=== PATIENT | male | born 1930 | race Caucasian/White ===

== ENCOUNTER 2016-12-11 12:59 | Emergency (ER) | payer OTHER ==
--- NOTE | 2016-12-11 13:04 | EDPHY ---
H & P Time Seen by Provider: 12/11/16 13:03 HPI/ROS: CHIEF COMPLAINT: Possible syncopal episode. ?fell asleep HISTORY OF PRESENT ILLNESS: The patient is an 86-year-old male with a history of prior CVAs and seizure disorder presenting via EMS for a possible syncopal episode earlier today. He reports that he was eating breakfast and next remembers waking up in the ambulance. He did not have chest pain, dizziness, headache, shortness of breath, weakness, or other preceding symptoms. Per his he was more tired than usual this morning and has not been sleeping well. He took a Mirtazapine prior to falling asleep last night which he does not usually do. She reports he had saliva dripping down his face while eating. These symptoms are not similar to his seizure episodes. EMS reports that he was breathing 2 to 3 times per minute when they arrived, which increased when they woke him up. No recent sickness, fever, chills, chest pain, shortness of breath , palpitations, vomiting, diarrhea, urinary complaints, headache, lightheadedness. He is anticoagulated on Plavix. On further history, patient took clonazepam prior to bed, didn't fall asleep so took a mirtazapine in the middle of the night. REVIEW OF SYSTEMS: Aside from elements discussed in the HPI, a comprehensive 10-point review of systems was reviewed and is negative. PAST MEDICAL HISTORY: CVA, TIA, seizure disorder, hypertension, peripheral neuropathy, BPH, sleep apnea. SOCIAL HISTORY: Lives at [facility]. VITAL SIGNS: Reviewed by me GENERAL: Pleasant. Well-developed, well-nourished, resting comfortably in no respiratory distress. HEENT: Healing wound over occiput from prior fall 2-3 weeks ago. Eyes: No icterus, no injection. PERRL, EOMI. Mouth: dry mucous membranes. No erythema or lesions. Neck: supple with no adenopathy. No tenderness to palpation. LUNGS: Clear to auscultation bilaterally, no wheezes, rhonchi or rales. CARDIAC: Regular rate and rhythm, no rubs, murmurs or gallops. ABDOMEN: Soft, nontender, nondistended, bowel sounds normal. BACK: No CVA tenderness. EXTREMITIES: Left leg: Healing area of cellulitis on lateral tib-fib with dressing in place. No edema. Range of motion is normal throughout. NEURO: Alert and oriented x 3, conversant, GRANT x4, good strength throughout, normal sensation, CN 2-12 intact. SKIN: Warm and dry, no rash. PSYCHIATRIC: Normal mentation, no agitation. Portions of this note were transcribed by a medical or surgical instrument maker. I personally performed a history, physical exam, medical decision making, and confirmed accuracy of information the transcribed note. Source: Patient Exam Limitations: No limitations - Personal History Tetanus Vaccine Date: < 10 years - Medical/Surgical History Hx Asthma: No Hx Chronic Respiratory Disease: No Hx Diabetes: No Hx Cardiac Disease: Yes Hx Renal Disease: No Hx Cirrhosis: No Hx Alcoholism: No Hx HIV/AIDS: No Hx Splenectomy or Spleen Trauma: No Other PMH: stroke 2013. epilepsy. neuropathy, ALFREDO, HTN,BPH, - Social History Smoking Status: Never smoked Constitutional: Initial Vital Signs Temperature (C) 36.4 C 12/11/16 13:09 Heart Rate 71 12/11/16 13:09 Respiratory Rate 14 12/11/16 13:09 Blood Pressure 108/54 L 12/11/16 13:09 O2 Sat (%) 95 12/11/16 13:09 O2 Delivery Mode Room Air Allergies/Adverse Reactions: phenytoin sodium [From Dilantin] Allergy (Verified 07/11/16 09:43) phenytoin sodium extended [From Dilantin] Allergy (Verified 07/11/16 09:43) Home Medications: Medication Instructions Recorded Acetamn/Diphenhydramine 500/25 1.5 tab PO HS 05/24/15 [Tylenol PM (*)] Cholecalciferol Vit D3 [Vitamin D3 1,000 units PO DAILY 05/24/15 (*)] Clopidogrel Bisulfate [Plavix (*)] 75 mg PO DAILY 05/24/15 Finasteride [Proscar 5 MG (*)] 5 mg PO DAILY18 05/24/15 Gabapentin [Neurontin 300 MG (*)] 300 mg PO 07,10,12,18 05/24/15 Gabapentin [Neurontin 300 MG (*)] 600 mg PO HS 05/24/15 Herbals/Supplements -Info Only 1 each PO HS 05/24/15 Lisinopril [Zestril 10 mg (*)] 5 mg PO DAILY 05/24/15 Melatonin [Melatonin 3 MG (*)] 3 mg PO HS PRN 05/24/15 Tamsulosin HCl [Flomax 0.4 MG (*)] 0.8 mg PO HS 05/24/15 carBAMazepine [Tegretol] 200 mg PO QID 05/24/15 LORazepam [Ativan (*)] 2 mg PO BID 07/11/16 levOFLOXACIN [levAQUIN (*)] 500 mg PO DAILY #7 tab 07/12/16 Medical Decision Making - Diagnostics EKG Interpretation: 12-LEAD EKG: Please see the full report in [facility]. My interpretation: Normal sinus rhythm with 1st degree AV block. Imaging: Study: CT of the head. Indication: Possible syncope. Results: No acute process. The study was read by the radiologist, Dr. Siddiqui. I viewed the images myself on the PACS system. Chest x-ray was obtained. I viewed the images myself on the PACS system. My interpretation of the images is: no acute process. The radiologist interpretation is pending at this time. I discussed the x-ray findings with the patient. ED Course/Re-evaluation: An IV was established and labs ordered. Chest x-ray, EKG, head CT w/o contrast ordered. 1L IV saline administered for hydration. 1404: CT reported to me negative for acute process by Dr. Siddiqui, radiology. Labs largely unremarkable. Troponin negative. 1427: Reassessed patient. Informed him of laboratory results. He will provide a urine sample. UA is negative. I discussed this with the patient. Patient and feel symptoms most likely represented overmedication. He is ready to go home. No evidence of intracranial issue, VS stable, labs normal. No evidence of occult infection. I answered all of his questions. He was given return precautions and warnings prior to discharge. Differential Diagnosis: Diff dx of patient presenting complaints included but not limited to vasovagal syncope, arrhythmia, dehydration, blood loss, cardiac event, seizure, over- medicated. - Data Points Laboratory Results: Laboratory Results 12/11/16 13:29 12/11/16 13:29 Medications Given: Discontinued Medications Sodium Chloride (Ns) 1,000 mls @ 0 mls/hr IV ONCE ONE PRN Reason: Wide Open Stop: 12/11/16 13:28 Last Admin: 12/11/16 13:39 Dose: 1,000 mls Departure - Departure Disposition: Home, Routine, Self-Care Clinical Impression: Near syncope, Adverse effect of drug Condition: Good Instructions: Near Syncope (ED) Additional Instructions: Drink plenty of fluids and be sure to get rest. Use care when taking your sleeping medications. Do not take more than one at a time. Follow up with your primary care provider this week if you have continued symptoms. Return to the emergency department if you experience any serious worsening of condition. Referrals: NONE *PRIMARY CARE P,. [Unknown] - As per Instructions Report Scribed for: Whit Wheat Report Scribed by: Lanre Bermeo Date of Report: 12/11/16 Time of Report: 13:04
--- NOTE | 2016-12-11 13:09 | CPEKG ---
Heart Rate: 66 RR Interval: 909 QRSD Interval: 104 QT Interval: 420 QTC Interval: 441 QRS [place]: -45 T Wave [place]: 38 EKG Severity - ABNORMAL ECG - EKG Impression: ACCELERATED JUNCTIONAL ESCAPE RHYTHM EKG Impression: LEFT ANTERIOR FASCICULAR BLOCK Electronically Signed By: Stewart Wyatt 11-Dec-2016 15:04:56
[2016-12-11 13:13] VITALS: RESP 14
[2016-12-11] MEDS ORDERED: NS 1,000 ML IV ONE (13:27)
[2016-12-11 13:49] LABS: ADD DIFF? YES; ADD MORPH? NO; ADD SCAN? NO; ATYPICAL LYMPHOCYTE FLAG 0 (0-99); FRAGMENT RBC FLAG 0 (0-99); HEMATOCRIT 40.6 % (40.0-51.0); HEMOGLOBIN 13.9 g/dL (13.7-17.5); LEFT SHIFT FLG 30 (0-99); LIPEMIA HEMOLYSIS FLAG 90 (0-99); MEAN CELL HEMOGLOBIN 30.5 pg (27.9-34.1); MEAN CELL HEMOGLOBIN CONCENTR. 34.2 g/dL (32.4-36.7); MEAN CELL VOLUME 89.2 fL (81.5-99.8); MEAN PLATELET VOLUME 7.8 fL (8.7-11.7); PLATELET CLUMPS FLAG 0 (0-99); PLATELET COUNT 362 10^3/uL (150-400); RED BLOOD CELL COUNT 4.55 10^6/uL (4.40-6.38); RED CELL DISTRIBUTION WIDTH 14.3 % (11.5-15.2)
[2016-12-11 14:01] LABS: ANION GAP 6 mEq/L (8-16); CALCIUM 7.9 mg/dL (8.5-10.4); CARBON DIOXIDE 25 mEq/l (22-31); CHLORIDE 103 mEq/L (97-110); CREATININE 0.9 mg/dL (0.7-1.3); GLOMERULAR FILTRATION RATE > 60; GLUCOSE 93 mg/dL (70-100); POTASSIUM 4.3 mEq/L (3.5-5.2); SODIUM 134 mEq/L (134-144); TEGRETOL (CARBAMAZEPINE) 9.6 ug/mL (4.0-12.0)
[2016-12-11 14:09] LABS: TROPONIN I < 0.012 ng/mL (0-0.034)
[2016-12-11 14:38] LABS: PLATELET ESTIMATE ADEQUATE (ADEQ)
[2016-12-11 14:59] VITALS: O2SAT 96
[2016-12-11 15:16] LABS: COLOR YELLOW; LEUKOCYTE ESTERASE,URINE NEGATIVE (NEGATIVE); NITRITE,URINE NEGATIVE (NEGATIVE)
--- NOTE | 2016-12-11 15:42 | DX ---
Chest, PA and Lateral December 11, 2016 History: Chest pain. Comparison: June 2016. Findings: Heart size is within normal limits. The aorta is tortuous with calcifications, indicating a therosclerotic disease. Emphysematous configuration to the chest. The lungs are clear of acute consol idation. No evidence for pleural effusion or pneumothorax. Degenerative change is seen in the thoraci c spine. Degenerative change is seen of both shoulders. Impression: No evidence for acute cardiopulmonary abnormality. Chronic findings, as above.
--- NOTE | 2016-12-11 15:44 | CT ---
CT Head Without Contrast History: Head injury two weeks ago. On Plavix. Syncopal episode. Technique: Standard noncontrast head CT protocol utilizing axial images acquired through the calvari um. Images were reconstructed down to 1.25-mm slice thickness as well. Radiation dose technique was u tilized. Findings: Moderate periventricular and deep hemispheric white matter change is seen bilaterally. Ther e is generalized prominence of the ventricles, sulci, and cisterns. No evidence for intracranial hemo rrhage, infarct, or mass. No evidence for an extraaxial fluid collection. No evidence for a skull fra cture. No evidence for an air-fluid level in the paranasal sinuses. Vascular calcifications are seen intracranially, indicating atherosclerotic disease. Impression: No evidence for acute intracranial abnormality. Moderate periventricular and deep hemisph oriana white matter change that can be seen with small vessel ischemic disease. Generalized cerebral at rophy. Results called to Dr. Whit Wheat.
[2016-12-11 16:10] VITALS: BP 133/78; PULSE 73; TEMP 97.5
== END 2016-12-11 16:09 | disposition home or self-care (01) ==
LOC: EDUNIT#
DX: R55 Syncope and collapse (principal); T43.025A Adverse effect of tetracyclic antidepressants, initial encounter; I10 Essential (primary) hypertension; Z86.73 Personal history of transient ischemic attack (TIA), and cerebral infarction without residual deficits

== ENCOUNTER 2017-04-08 14:49 | Inpatient (IN) | payer OTHER ==
[2017-04-08] MEDS: NS 1,000 ML IV ONE ×4 (15:02→15:33)
--- NOTE | 2017-04-08 15:05 | EDPHY ---
H & P Time Seen by Provider: 04/08/17 14:54 HPI/ROS: HPI Altered mental status. 86-year-old male by ambulance from home. Patient apparently was of normal mental status and behaving appropriately this morning according to his he lives with. Then became progressively more confused and agitated through the late morning into this afternoon. Paramedics report that the house smelled strongly of urine. Paramedics noted he was somewhat combative. states that he has been grabbing at things grabbing at people and talking nonsensically. History of mechanical fall 4 days ago. Unknown if he is on anticoagulants. He self caths. noted nurse assessor some blood in his urine this morning along with strong smell of urine. Patient initially given 2.5 mg of IV Valium secondary to agitation by EMS. ROS: Constitutional: Fever, no chills. No weakness. Eyes: No discharge. No changes in vision. ENT: No sore throat. No nasal congestion or rhinorrhea. Respiratory: No cough. No shortness of breath. Cardiac: No chest pain, no palpitations. Gastrointestinal: No abdominal pain, no vomiting, no diarrhea. Genitourinary: No hematuria. No dysuria or increased frequency with urination. Self cath. Musculoskeletal: No back pain. No neck pain. No myalgias or arthralgias. Skin: No rashes. Neurological: No headache. No focal weakness or altered sensation. Past medical history: Neuropathy in the lower extremities with history of frequent falls secondary to this, osteoarthritis, benign prostatic hypertrophy, self catheterization. He is on clopidogrel. Social history: Nonsmoker. No alcohol according to . is present with him. Physical Exam: General Appearance: Alert, agitated. Grabbing at people and things. Mumbles, eyes open This patient appears generally well-hydrated and well-nourished. Eyes: Pupils equal and round no pallor or injection. No lid edema, erythema or injection. Head: Normocephalic atraumatic. ENT, Mouth: Mucous membranes are moist. The pharyngeal tissues are unremarkable. No edema or swelling. No asymmetry suggestive of abscess. No erythema or exudates. No tongue lacerations or abrasions. Respiratory: There are no retractions, lungs are clear to auscultation with good air movement bilaterally. Cardiovascular: Regular rate and rhythm. No murmur. Gastrointestinal: Abdomen is soft and nontender, no masses, bowel sounds normal. No focal tenderness at McBurney's point. No Rouse sign. Neurological: Motor sensory function is grossly intact. Cranial nerves are normal. Gait is normal. Skin: Warm and dry, no rashes. Musculoskeletal: Neck is supple and nontender. No midline cervical spine tenderness on palpation. Extremities are symmetrical. All joints range without pain or impingement. Psychiatric: No agitation. No depression. Database: EKG: EKG time is 3:13 p.m.; EKG shows a narrow complex sinus tachycardia with a ventricular rate of 105. The MD, QRS, QT intervals are within normal limits. There are no ST-T wave changes indicative of ischemic or injury pattern. No evidence of right heart strain. Interpreted by me. Imaging: CT head without contrast: Negative for acute pathology. Results were discussed with staff radiologist. Chest x-ray PA and lateral; the cardiac mediastinal silhouette is unremarkable. No evidence of infiltrate or pneumothorax. Diffuse interstitial thickening in both lungs. No other acute cardiopulmonary disease process noted. Interpreted by me. Procedures: Emergency department course: IV placed. He was placed on a pension consultant. Sellers catheter placed. Urine obtained. Blood cultures and sepsis protocol initiated. Vital signs reviewed. Patient febrile and tachycardic. EKG performed. Patient to be sent for CT imaging shortly. Patient given an additional 7.5 mg of IV Valium. 3:30 p.m., patient re-evaluated. Resting comfortably at this time. Calm and now responding to questions appropriately and in full sentences. Initial venous lactate 5.4, severe sepsis protocol initiated. Patient sent for CT imaging of the head. 4:00 p.m., urinalysis indicates infection, patient started on IV Rocephin in the emergency department for urosepsis. Repeat lactate after 30 mL/kilogram fluid bolus is 2.8. Blood pressure 133/53, heart rate 98. Discussed case with on-call hospitalist Dr. Bradford. He has accepted this patient for admission. Patient admitted to hospitalist service in stable and improved condition. Differential Diagnosis: The differential diagnosis on this patient includes but is not limited to urosepsis, traumatic brain injury, seizure. This represents a partial list of diagnoses considered. These considerations are based on history, physical exam , past history, reassessment and diagnostic testing. Smoking Status: Never smoked Constitutional: Initial Vital Signs Temperature (C) 39.3 C H 04/08/17 14:59 Heart Rate 115 H 04/08/17 14:59 Respiratory Rate 18 04/08/17 14:59 Blood Pressure 146/84 H 04/08/17 14:59 O2 Sat (%) 90 L 04/08/17 14:59 O2 Delivery Mode Nasal Cannula O2 (L/minute) 2 Allergies/Adverse Reactions: phenytoin sodium [From Dilantin] Allergy (Verified 07/11/16 09:43) phenytoin sodium extended [From Dilantin] Allergy (Verified 07/11/16 09:43) Home Medications: Medication Instructions Recorded Acetamn/Diphenhydramine 500/25 1.5 tab PO HS 05/24/15 [Tylenol PM (*)] Cholecalciferol Vit D3 [Vitamin D3 1,000 units PO DAILY 05/24/15 (*)] Clopidogrel Bisulfate [Plavix (*)] 75 mg PO DAILY 05/24/15 Finasteride [Proscar 5 MG (*)] 5 mg PO DAILY18 05/24/15 Gabapentin [Neurontin 300 MG (*)] 300 mg PO 07,,,18 05/24/15 Gabapentin [Neurontin 300 MG (*)] 600 mg PO HS 05/24/15 Herbals/Supplements -Info Only 1 each PO HS 05/24/15 Lisinopril [Zestril 10 mg (*)] 5 mg PO DAILY 05/24/15 Melatonin [Melatonin 3 MG (*)] 3 mg PO HS PRN 05/24/15 Tamsulosin HCl [Flomax 0.4 MG (*)] 0.8 mg PO HS 05/24/15 carBAMazepine [Tegretol] 200 mg PO QID 05/24/15 LORazepam [Ativan (*)] 2 - 3 mg PO HS 07/11/16 Mirtazapine [Remeron] 22.5 mg PO HS PRN 04/08/17 Medical Decision Making - Diagnostics Imaging Results: Imaging Impressions Chest X-Ray 04/08/17 14:58 Impression: Diffuse interstitial thickening throughout both lungs, new, interstitial pneumonitis versus interstitial pulmonary edema. Head CT 04/08/17 14:59 Impression: 1. No acute intracranial findings. 2. Diffuse cerebral atrophy with periventricular and subcortical low attenuation consistent with chronic microvascular ischemic gliosis. Findings discussed with Noemí Merlos MD 04/08/2017 at 16:18. - Data Points Laboratory Results: Laboratory Results 04/08/17 14:55 04/08/17 14:55 04/08/17 04/08/17 04/08/17 15:45 15:30 14:55 WBC 7.90 10^3/uL 10^3/uL (3.80-9.50) RBC 4.97 10^6/uL 10^6/uL (4.40-6.38) Hgb 14.9 g/dL g/dL (13.7-17.5) Hct 43.3 % % (40.0-51.0) MCV 87.1 fL fL (81.5-99.8) MCH 30.0 pg pg (27.9-34.1) MCHC 34.4 g/dL g/dL (32.4-36.7) RDW 13.8 % % (11.5-15.2) Plt Count 248 10^3/uL 10^3/uL (150-400) MPV 7.9 fL L fL (8.7-11.7) Neut % (Auto) 85.6 % H % (39.3-74.2) Lymph % (Auto) 6.7 % L % (15.0-45.0) [place] % (Auto) 6.8 % % (4.5-13.0) Eos % (Auto) 0.3 % L % (0.6-7.6) Baso % (Auto) 0.3 % % (0.3-1.7) Nucleat RBC Rel Count 0.0 % % (0.0-0.2) Absolute Neuts (auto) 6.77 10^3/uL H 10^3/uL (1.70-6.50) Absolute Lymphs (auto) 0.53 10^3/uL L 10^3/uL (1.00-3.00) Absolute Monos (auto) 0.54 10^3/uL 10^3/uL (0.30-0.80) Absolute Eos (auto) 0.02 10^3/uL L 10^3/uL (0.03-0.40) Absolute Basos (auto) 0.02 10^3/uL 10^3/uL (0.02-0.10) Absolute Nucleated RBC 0.00 10^3/uL 10^3/uL (0-0.01) Immature Gran % 0.3 % % (0.0-1.1) Immature Gran # 0.02 10^3/uL 10^3/uL (0.00-0.10) PT INR APTT VBG Lactic Acid 2.8 mmol/L H mmol/L (0.7-2.1) Sodium Potassium Chloride Carbon Dioxide Anion Gap BUN Creatinine Estimated GFR Glucose Calcium Total Bilirubin Conjugated Bilirubin Unconjugated Bilirubin AST ALT Alkaline Phosphatase Total Protein Albumin Urine Color YELLOW Urine Appearance MODERATELY TURBID Urine pH 5.0 (5.0-7.5) Ur Specific [place] 1.012 (1.002-1.030) Urine Protein 1+ H (NEGATIVE) Urine Ketones TRACE H (NEGATIVE) Urine Blood 1+ H (NEGATIVE) Urine Nitrate POSITIVE H (NEGATIVE) Urine Bilirubin NEGATIVE (NEGATIVE) Urine Urobilinogen NEGATIVE EU EU (0.2-1.0) Ur Leukocyte Esterase 1+ H (NEGATIVE) Urine RBC 3-5 /hpf H /hpf (0-3) Urine WBC 25-50 /hpf H /hpf (0-3) Ur Epithelial Cells TRACE /lpf /lpf (NONE-1+) Urine Bacteria 1+ /hpf H /hpf (NONE SEEN) Urine Mucus TRACE /lpf /lpf (NONE-1+) Urine Glucose NEGATIVE (NEGATIVE) 04/08/17 04/08/17 04/08/17 14:55 14:55 14:55 WBC RBC Hgb Hct MCV MCH MCHC RDW Plt Count MPV Neut % (Auto) Lymph % (Auto) [place] % (Auto) Eos % (Auto) Baso % (Auto) Nucleat RBC Rel Count Absolute Neuts (auto) Absolute Lymphs (auto) Absolute Monos (auto) Absolute Eos (auto) Absolute Basos (auto) Absolute Nucleated RBC Immature Gran % Immature Gran # PT 14.9 SEC SEC (12.0-15.0) INR 1.17 H (0.83-1.16) APTT 26.6 SEC SEC (23.0-38.0) VBG Lactic Acid 5.4 mmol/L H mmol/L (0.7-2.1) Sodium 134 mEq/L mEq/L (134-144) Potassium 4.4 mEq/L mEq/L (3.5-5.2) Chloride 102 mEq/L mEq/L (97-110) Carbon Dioxide 20 mEq/l L mEq/l (22-31) Anion Gap 12 mEq/L mEq/L (8-16) BUN 14 mg/dL mg/dL (7-23) Creatinine 0.8 mg/dL mg/dL (0.7-1.3) Estimated GFR > 60 Glucose 141 mg/dL H mg/dL (70-100) Calcium 8.8 mg/dL mg/dL (8.5-10.4) Total Bilirubin 0.7 mg/dL mg/dL (0.1-1.4) Conjugated Bilirubin 0.3 mg/dL mg/dL (0.0-0.5) Unconjugated Bilirubin 0.4 mg/dL mg/dL (0.0-1.1) AST 38 IU/L IU/L (17-59) ALT 29 IU/L IU/L (21-72) Alkaline Phosphatase 98 IU/L IU/L (38-126) Total Protein 6.5 g/dL g/dL (6.3-8.2) Albumin 4.1 g/dL g/dL (3.5-5.0) Urine Color Urine Appearance Urine pH Ur Specific [place] Urine Protein Urine Ketones Urine Blood Urine Nitrate Urine Bilirubin Urine Urobilinogen Ur Leukocyte Esterase Urine RBC Urine WBC Ur Epithelial Cells Urine Bacteria Urine Mucus Urine Glucose Medications Given: Discontinued Medications Acetaminophen (Tylenol Rectal) 650 mg MD EDNOW ONE Stop: 04/08/17 15:30 Last Admin: 04/08/17 15:48 Dose: 650 mg Acetaminophen (Tylenol Rectal) 325 mg MD EDNOW ONE Stop: 04/08/17 15:30 Last Admin: 04/08/17 15:48 Dose: 325 mg Diazepam (Valium Injection) 1.5 mg IVP EDNOW ONE Stop: 04/08/17 15:20 Last Admin: 04/08/17 15:20 Dose: 1.5 mg Sodium Chloride (Ns) 1,000 mls @ 0 mls/hr IV ONCE ONE PRN Reason: Wide Open Stop: 04/08/17 14:57 Last Admin: 04/08/17 15:33 Dose: Not Given Sodium Chloride (Ns) 1,000 mls @ 0 mls/hr IV ONCE ONE PRN Reason: Wide Open Stop: 04/08/17 14:57 Last Admin: 04/08/17 15:33 Dose: Not Given Sodium Chloride (Ns) 2,200 mls @ 4,400 mls/hr 30 ml/kg infuse over 30 min ( 2200 ml) IV EDNOW ONE Stop: 04/08/17 15:59 Last Admin: 04/08/17 15:33 Dose: 2,200 mls Ceftriaxone Sodium/Dextrose (Rocephin 1 Gm (Premix)) 50 mls @ 100 mls/hr IV EDNOW ONE PRN Reason: Protocol Stop: 04/08/17 16:33 Last Admin: 04/08/17 16:16 Dose: 50 mls Departure - Departure Disposition: [facility] Acute Clinical Impression: Sepsis, Altered mental status, Urinary tract infection
[2017-04-08 15:09] LABS: % IMMATURE GRANULYOCYTES 0.3 % (0.0-1.1); ABSOLUTE IMMATURE GRANULOCYTES 0.02 10^3/uL (0.00-0.10); ADD DIFF? NO; ADD MORPH? NO; ADD SCAN? NO; ATYPICAL LYMPHOCYTE FLAG 0 (0-99); FRAGMENT RBC FLAG 0 (0-99); HEMATOCRIT 43.3 % (40.0-51.0); HEMOGLOBIN 14.9 g/dL (13.7-17.5); LEFT SHIFT FLG 0 (0-99); LIPEMIA HEMOLYSIS FLAG 90 (0-99); MEAN CELL HEMOGLOBIN CONCENTR. 34.4 g/dL (32.4-36.7); MEAN CELL VOLUME 87.1 fL (81.5-99.8); MEAN PLATELET VOLUME 7.9 fL (8.7-11.7); PLATELET CLUMPS FLAG 0 (0-99); PLATELET COUNT 248 10^3/uL (150-400); RED BLOOD CELL COUNT 4.97 10^6/uL (4.40-6.38); RED CELL DISTRIBUTION WIDTH 13.8 % (11.5-15.2)
--- NOTE | 2017-04-08 15:14 | CPEKG ---
Heart Rate: 105 RR Interval: 571 P-R Interval: 200 QRSD Interval: 106 QT Interval: 336 QTC Interval: 445 P [place]: 60 QRS [place]: -55 T Wave [place]: 81 EKG Severity - ABNORMAL ECG - EKG Impression: SINUS TACHYCARDIA EKG Impression: LEFT ANTERIOR FASCICULAR BLOCK Electronically Signed By: Noemí Merlos 08-Apr-2017 17:28:28
[2017-04-08 15:18] LABS: INR 1.17 (0.83-1.16); PROTIME(PATIENT) 14.9 SEC (12.0-15.0)
[2017-04-08 15:19] LABS: APTT 26.6 SEC (23.0-38.0)
[2017-04-08] MEDS ORDERED: DIAZEPAM 10 MG/2 ML SYR IVP ONE (15:19)
[2017-04-08] MEDS ORDERED: ACETAMINOPHEN 650 MG SUPP PR ONE (15:29)
[2017-04-08] MEDS ORDERED: ACETAMINOPHEN 325 MG SUPP PR ONE (15:29)
[2017-04-08] MEDS ORDERED: NS 2,200 ML IV ONE (15:30)
[2017-04-08 15:32] LABS: ALANINE AMINOTRANSFERASE 29 IU/L (21-72); ALBUMIN 4.1 g/dL (3.5-5.0); ALKALINE PHOSPHATASE 98 IU/L (38-126); ANION GAP 12 mEq/L (8-16); ASPARTATE AMINOTRANSFERASE 38 IU/L (17-59); BILIRUBIN,TOTAL 0.7 mg/dL (0.1-1.4); BILIRUBIN-CONJUGATED 0.3 mg/dL (0.0-0.5); BILIRUBIN-UNCONJUGATED 0.4 mg/dL (0.0-1.1); CALCIUM 8.8 mg/dL (8.5-10.4); CARBON DIOXIDE 20 mEq/l (22-31); CHLORIDE 102 mEq/L (97-110); CREATININE 0.8 mg/dL (0.7-1.3); GLOMERULAR FILTRATION RATE > 60; GLUCOSE 141 mg/dL (70-100); POTASSIUM 4.4 mEq/L (3.5-5.2); SODIUM 134 mEq/L (134-144); TOTAL PROTEIN 6.5 g/dL (6.3-8.2)
[2017-04-08 15:41] LABS: COLOR YELLOW; LEUKOCYTE ESTERASE,URINE 1+ (NEGATIVE); NITRITE,URINE POSITIVE (NEGATIVE)
[2017-04-08 15:43] LABS: BACTERIA 1+ /hpf (NONE SEEN); MUCUS TRACE /lpf (NONE-1+); WBC,URINE 25-50 /hpf (0-3)
[2017-04-08] MEDS ORDERED: NON-FORMULARY NEW DRUG (Mirtazapine [Remeron] 22.5 MG) PO PRN (16:43)
[2017-04-08] MEDS ORDERED: ACETAMINOPHEN 325 MG TAB PO PRN (16:43)
[2017-04-08] MEDS ORDERED: ONDANSETRON 4 MG/2 ML VIAL IVP PRN (16:43)
[2017-04-08 16:51] LABS: LACGHOST ORDER
--- NOTE | 2017-04-08 17:14 | GHP ---
[f rep st] HISTORY AND PHYSICAL DATE OF ADMISSION: 04/08/2017 CHIEF COMPLAINT: Altered mental status. HISTORY OF PRESENT ILLNESS: This is an 86-year-old male with history of BPH requiring self-catheter ization. He presented to the emergency department today after he became abruptly confused with angely es and chills at 1 o'clock this afternoon. Per the patient's , his symptoms started abruptly. He denies any fevers. He routinely performs self-catheterizations at home and noticed that his urin e was bloody last night. The patient was admitted to the hospital on June of 2016, where he presented with slurred speech w hich was ultimately found to be due to a urinary tract infection as well. PAST MEDICAL HISTORY: 1. CVA with history of slurred speech. 2. Seizure disorder since childhood. 3. Peripheral neuropathy thought to be due to Dilantin. 4. Obstructive sleep apnea. 5. BPH. 6. Hyponatremia. 7. Hypertension. 8. Goiter. 9. Urinary retention. PAST SURGICAL HISTORY: Denies. HOME MEDICATIONS: Reviewed. Refer to [employer] for details. ALLERGIES: Phenytoin. SOCIAL HISTORY: The patient lives with his at [facility]. He denies any alcohol, toba distribution accounting clerk, or illicit drug use. FAMILY HISTORY: Reviewed and noncontributory. REVIEW OF SYSTEMS: Comprehensive 10-point review of systems was done and is negative except for as mentioned in the HPI. PHYSICAL EXAM: VITAL SIGNS: Blood pressure 133/53, pulse of 115, respiratory rate 18, O2 saturatio n 90% on room air, temperature 39.3. GENERAL: No acute distress. HEAD: Normocephalic, atraumatic . MOUTH: Dry oral mucosa. NECK: Supple. No lymphadenopathy. CARDIOVASCULAR: S1-S2, tachycardi c. No JVD. No lower extremity edema. PULMONARY: Lungs are clear. No wheezes, rales, or rhonchi. ABDOMEN: Soft, nontender, nondistended. No guarding or rebound tenderness. There is slight tend erness to deep palpation over the bladder. NEURO: Speech is fluent. Cranial nerves 2-12 grossly i ntact. Moves all extremities. He has numbness in his right leg attributed to peripheral neuropathy . SKIN: Clear. No rashes. DIAGNOSTICS: WBC 7.9, hemoglobin 14.9, hematocrit 43.3, platelets 248. Initial venous lactic acid was 5.4 with a repeat of 2.8. Sodium 134, potassium 4.4, chloride 102, CO2 20, BUN 14, creatinine 0 .8, glucose 141, LFTs reviewed and unremarkable. UA: 1+ blood, trace ketones, 1+ protein, positive nitrate, 1+ leukocyte esterase. Head CT was done, preliminary read done by myself was negative for bleeding. EKG which I visualized and personally interpreted shows sinus tachycardia, rate 105 beat s per minute, with no acute ischemic changes. Chest x-ray, which I also visualized and reviewed mehdi wed diffuse interstitial thickening throughout both lungs representing new interstitial pneumonitis versus interstitial pulmonary edema. ASSESSMENT AND PLAN: This is an 86-year-old male presenting with. 1. Acute encephalopathy likely due to below. 2. Suspected urinary tract infection with evidence of severe sepsis. 3. Diffuse interstitial infiltrates representing interstitial pneumonitis/pneumonia versus pulmonar y edema. The patient is currently oxygenating adequately on room air. 4. History of benign prostatic hyperplasia and urinary retention requiring self-catheterization, st atus post Sellesr placement in the emergency department. PLAN: 1. Admit to the hospital. 2. Follow cultures. 3. Continue ceftriaxone that was started in the emergency department. 4. Continue with IV fluid resuscitation and trending lactic acid levels. 5. Check BNP given his infiltrates. 6. Consider repeating a chest x-ray if his respiratory status worsens or to follow up as infiltrate s. 7. The patient will be admitted to the hospital under inpatient status. He is high risk for VTE an d subsequently will be placed on Lovenox for DVT prophylaxis. /[id number]/[id number]
[2017-04-08] MEDS: GABAPENTIN 300 MG CAP PO SCH ×2 (18:35→22:30)
[2017-04-08] MEDS: FINASTERIDE 5 MG TAB PO SCH (18:35)
[2017-04-08] MEDS ORDERED: Herbals/Supplements -Info Only PO SCH (21:00)
[2017-04-08] MEDS ORDERED: ACETAMN/DIPHENHYDRAMINE 500/25MG TAB PO PRN (21:00)
[2017-04-08] MEDS ORDERED: carBAMazepine 200 MG TAB PO SCH (21:00)
[2017-04-08] MEDS: CARBAMAZEPINE 100 MG CHEWABLE TAB PO SCH (22:27)
[2017-04-08] MEDS: LORazepam 1 MG TAB PO SCH (22:28)
[2017-04-08] MEDS: TAMSULOSIN HCL 0.4 MG CAP PO SCH (22:29)
[2017-04-08] MEDS: MELATONIN 3 MG TAB PO PRN (22:39)
[2017-04-09 05:23] LABS: % IMMATURE GRANULYOCYTES 0.5 % (0.0-1.1); ABSOLUTE IMMATURE GRANULOCYTES 0.03 10^3/uL (0.00-0.10); ADD DIFF? NO; ADD MORPH? NO; ADD SCAN? NO; ATYPICAL LYMPHOCYTE FLAG 0 (0-99); FRAGMENT RBC FLAG 0 (0-99); HEMATOCRIT 37.6 % (40.0-51.0); HEMOGLOBIN 12.4 g/dL (13.7-17.5); LEFT SHIFT FLG 0 (0-99); LIPEMIA HEMOLYSIS FLAG 80 (0-99); MEAN CELL HEMOGLOBIN 29.9 pg (27.9-34.1); MEAN CELL VOLUME 90.6 fL (81.5-99.8); MEAN PLATELET VOLUME 8.5 fL (8.7-11.7); PLATELET CLUMPS FLAG 0 (0-99); PLATELET COUNT 201 10^3/uL (150-400); RED BLOOD CELL COUNT 4.15 10^6/uL (4.40-6.38); RED CELL DISTRIBUTION WIDTH 14.3 % (11.5-15.2)
[2017-04-09 05:47] LABS: ANION GAP 6 mEq/L (8-16); CARBON DIOXIDE 24 mEq/l (22-31); CHLORIDE 105 mEq/L (97-110); CREATININE 0.8 mg/dL (0.7-1.3); GLOMERULAR FILTRATION RATE > 60; GLUCOSE 79 mg/dL (70-100); POTASSIUM 4.1 mEq/L (3.5-5.2); SODIUM 135 mEq/L (134-144)
[2017-04-09] MEDS: GABAPENTIN 300 MG CAP PO SCH ×5 (06:30→22:58)
[2017-04-09] MEDS: carBAMazepine 200 MG TAB PO SCH ×3 (06:30→19:58)
[2017-04-09] MEDS: CLOPIDOGREL BISULFATE 75 MG TAB PO SCH (09:44)
[2017-04-09] MEDS: CHOLECALCIFEROL VIT D3 1,000 UNITS TAB PO SCH (09:44)
[2017-04-09] MEDS: ENOXAPARIN 40 MG/0.4 ML SYR SC SCH (09:46)
--- NOTE | 2017-04-09 12:11 | GCON ---
[f rep st] CONSULTATION INFECTIOUS DISEASE DATE OF CONSULTATION: 04/09/2017 REFERRING PHYSICIAN: Tala Childs MD REASON FOR CONSULT: To assist in the management of this patient with gram- negative pedro bacteremia secondary to urinary source. HISTORY OF PRESENT ILLNESS: The patient is a very pleasant 86-year-old gentleman whose previous medical history is notable for the followin. Benign prostatic hypertrophy requiring self catheterization for the past 3- 4 months per the patient. 2. History of seizure disorder since childhood. 3. CVA with history of dysarthria. 4. Obstructive sleep apnea. 5. Hyponatremia. 6. Hypertension. 7. Goiter. 8. Eczema. Regarding his present issues, the patient presented to [facility] the afternoon of 04/08, after calling the ambulance from home. The patient developed confusion and agitation with rigors. His had noted that he had some blood in his urine yesterday morning. In the emergency room, the patient was febrile to 39.3. Blood pressure was stable at 146/84. He was started on IV ceftriaxone and admitted to the floor for further evaluation and treatment of sepsis. His urine was notable for 25-50 white blood cells, and 1+ bacteria. Blood culture sent were notable for a PCR that was rapidly positive for Klebsiella pneumoniae. I am now asked to assist in his management. In speaking with the patient today, he states that he feels much better. He did have some rigors this morning. No nausea or vomiting. He tries to clean his urethra meticulously prior to self cathing, but states that he is not always meticulous with this. No recent diarrhea, abdominal pain, or chest pain. REVIEW OF SYSTEMS: Aside from what is listed above, 10 systems are reviewed and are negative. PREVIOUS MEDICAL HISTORY: As outlined above. ALLERGIES: Phenytoin. MEDICATIONS: Presently include ceftriaxone 1 g IV daily, Tylenol, Tegretol, vitamin D, Plavix, Lovenox, Proscar, Neurontin, melatonin, Zofran and Flomax. SOCIAL HISTORY: The patient is a former technical manager chemical plant. He lives with his at [facility]. He denies alcohol, tobacco or illicit substances. He does have grown children. No other unusual exposures. FAMILY HISTORY: Reviewed and noncontributory. PHYSICAL EXAM: VITAL SIGNS: T current is 36.6, T-max is 39.3, heart rate of 56 , blood pressure 107/53. GENERAL: Elderly male, lying in bed, no apparent distress. Nontoxic. HEENT: Atraumatic, normocephalic. Pupils equal, round, reactive to light. Extraocular movements are intact. No conjunctival injection. No icterus or petechiae. No sinus process tenderness. Mucous membranes are dry. No oral lesions noted. Dentition in fair repair. NECK: No thyromegaly. Trachea is midline. No cervical or supraclavicular lymphadenopathy. CARDIOVASCULAR: Distant heart sounds. S1 and S2. Cannot appreciate any murmurs, rubs, or gallops. LUNGS: No increased respiratory effort. Clear to auscultation anterolaterally. ABDOMEN: Soft, no organomegaly or tenderness to palpation. The patient has a urinary catheter in place. EXTREMITIES: No muscle belly tenderness, clubbing, cyanosis or edema. SKIN: The patient has some venous stasis changes over his lower extremities. Otherwise no obvious rash. NEUROLOGIC: He is alert, oriented x3. No focal deficits. LABORATORY DATA: Microbiologic data. Blood cultures are growing gram-negative rods from the . PCR has identified the organism as a Klebsiella pneumoniae. Urine is also growing gram-negative rods greater than 100,000 colonies with 2 colony types. Urinalysis with 1+ protein, 1+ blood, 1+ leukocyte esterase, 25-50 white blood cells, 1+ bacteria. White blood cell count 6.3, hematocrit 37, platelet count of 201. BUN and creatinine 16/0.8. Liver function tests within normal limits. RADIOGRAPHIC DATA: Chest x-ray shows "diffuse interstitial thickening throughout both lungs." Head CT with no acute intracranial findings. IMPRESSION: 86-year-old male with history of benign prostatic hypertrophy requiring self catheterization who now presents with gram-negative bacteremia secondary to urinary source. The organism has been identified as Klebsiella pneumoniae, susceptibilities are pending. PLAN: 1. Change Ceftriaxone to Cefepime pending sensitivity panel of the Klebsiella. 2. I ordered repeat blood cultures for tomorrow morning. 3. If the organism is susceptible to the quinolone family of antibiotics, he may be able to be switched to p.o. therapy, with close attention to his mental status, as these antibiotics are known to cause confusion in the elderly. 4. Reviewed the importance of meticulous hygiene when self catheterizes. Thank you very much for consulting Infectious Disease. We will continue to follow this patient with you. /[id number]/MODL MTDD
--- NOTE | 2017-04-09 14:37 | HOSPPROG ---
Hospitalist Progress Note Assessment/Plan: Severe sepsis secondary Klebsiella bacteremia from UTI in setting of self catheterizations for BPH - Appreciate ID consult, cont Cefepime, await sensitivities. Acute encephalopathy - likely due to above Interstitial infiltrates - ?pneumonitis vs pulmonary edema, requiring 2 LPM O2, bnp not significantly elevated f/u CXR in am H/O CVA H/O seizure disorder DVT PPLX - Lovenox Full code Dispo - cont inpt Subjective: Pt feels a bit better today. Denies CP or SOB. No cough or other respiratory symptoms. No fevers. Objective: Vital Signs Temp Pulse Resp BP Pulse Ox 36.7 C 56 L 16 112/59 L 97 04/09/17 11:43 04/09/17 12:04 04/09/17 12:08 04/09/17 11:43 04/09/17 12:08 Laboratory Results 04/09/17 05:04 04/09/17 05:04 04/08/17 04/09/17 04/10/17 05:59 05:59 05:59 Intake Total 2500 Output Total 1300 Balance 1200 PT 14.9 SEC (12.0-15.0) 04/08/17 14:55 INR 1.17 (0.83-1.16) H 04/08/17 14:55 - Physical Exam Constitutional: no apparent distress Eyes: PERRL Ears, Nose, Mouth, Throat: moist mucous membranes Cardiovascular: regular rate and rhythym Respiratory: no respiratory distress, clear to auscultation Gastrointestinal: normoactive bowel sounds, soft, non-tender abdomen Skin: warm Musculoskeletal: full muscle strength Neurologic: AAOx3 Psychiatric: interacting appropriately ICD10 Worksheet Patient Problems: Problems Problem Status Onset Altered mental status Acute Sepsis Acute Urinary tract infection Acute Acute ischemic stroke Acute CVA (cerebral infarction) Acute Epilepsy with intractable epilepsy Acute Near syncope Acute Neuropathy Acute Pneumonia Acute
[2017-04-09] MEDS ORDERED: CEFEPIME HCL 2 GM VIAL IV SCH (16:00)
[2017-04-09] MEDS ORDERED: ceFAZolin 2 GM in D5W 100 ML IV SCH (16:00)
[2017-04-09] MEDS: CEFEPIME HCL 2 GM in D5W 100 ML IV SCH (17:51)
[2017-04-09] MEDS: FINASTERIDE 5 MG TAB PO SCH (17:51)
[2017-04-09] MEDS: MELATONIN 3 MG TAB PO PRN (22:57)
[2017-04-09] MEDS: CARBAMAZEPINE 100 MG CHEWABLE TAB PO SCH (22:57)
[2017-04-09] MEDS: MIRTAZAPINE 15 MG TAB PO PRN (22:57)
[2017-04-09] MEDS: TAMSULOSIN HCL 0.4 MG CAP PO SCH (22:58)
[2017-04-09] MEDS: LORazepam 1 MG TAB PO SCH (22:58)
[2017-04-10] MEDS: CEFEPIME HCL 2 GM in D5W 100 ML IV SCH (05:58)
[2017-04-10] MEDS: GABAPENTIN 300 MG CAP PO SCH ×5 (08:45→20:29)
[2017-04-10] MEDS: carBAMazepine 200 MG TAB PO SCH ×3 (08:45→20:29)
[2017-04-10] MEDS: CLOPIDOGREL BISULFATE 75 MG TAB PO SCH (08:46)
[2017-04-10] MEDS: CHOLECALCIFEROL VIT D3 1,000 UNITS TAB PO SCH (08:46)
[2017-04-10] MEDS: ENOXAPARIN 40 MG/0.4 ML SYR SC SCH (08:46)
--- NOTE | 2017-04-10 10:22 | PCMIDPN ---
Assessment/Plan: 1. Klebsiella bacteremia secondary to urinary source: The Klebsiella isolate is susceptible to the quinolone family of antibiotics. Will change cefepime to Levaquin 750 PO daily, and follow mental status closely on this antibiotic given risk of confusion in the elderly. Repeat blood cultures pending. Patient is anxious to go home, but I explained to him he needs to stay here at least another day. Also, will speak with social work as I do think it would be prudent to do a home safety evaluation with this patient. Will also have physical therapy see him today. Subjective: "I want to go home." No diarrhea. No further chills. Objective: Cefepime 2 g IV q.12 hours day 1. (Antibiotics day 2) Afebrile Vital Signs Temp Pulse Resp BP Pulse Ox 36.6 C 69 16 151/90 H 93 04/10/17 08:15 04/10/17 08:15 04/10/17 08:15 04/10/17 08:15 04/10/17 09:07 Laboratory Results 04/09/17 05:04 04/09/17 05:04 04/09/17 04/10/17 04/11/17 05:59 05:59 05:59 Intake Total 2500 400 Output Total 1300 Balance 1200 400 blood cultures from April 0812/17 bottles Klebsiella pneumoniae susceptible to the quinolones Urine culture 527 greater than 100,000 colonies of Klebsiella pneumoniae Repeat blood cultures for from this morning are pending - Physical Exam General Appearance: alert, no apparent distress EENT: pharynx normal Respiratory: lungs clear Cardiac/Chest: regular rate, rhythm, other ( distant heart sounds) Abdomen: non-tender, soft Skin: No rash Neuro/Psych: oriented x 3, No no motor/sensory deficits ICD10 Worksheet Patient Problems: Problems Problem Status Onset Altered mental status Acute Sepsis Acute Urinary tract infection Acute Acute ischemic stroke Acute CVA (cerebral infarction) Acute Epilepsy with intractable epilepsy Acute Near syncope Acute Neuropathy Acute Pneumonia Acute
--- NOTE | 2017-04-10 14:32 | HOSPPROG ---
Hospitalist Progress Note Assessment/Plan: Severe sepsis secondary Klebsiella bacteremia from UTI in setting of self catheterizations for BPH - Appreciate ID consult, changing to oral therapy today. Possibly home tomorrow if continues to do well. Acute encephalopathy - Improving, likely due to above Interstitial infiltrates - resolved on f/u film H/O CVA H/O seizure disorder DVT PPLX - Lovenox Full code Dispo - cont inpt Subjective: Pt feels much better today. No fevers. No N/V. No abdominal pain. He is ambulating. Objective: Vital Signs Temp Pulse Resp BP Pulse Ox 36.6 C 67 18 125/69 H 95 04/10/17 12:00 04/10/17 12:00 04/10/17 12:00 04/10/17 12:00 04/10/17 12:00 Laboratory Results 04/09/17 05:04 04/09/17 05:04 04/09/17 04/10/17 04/11/17 05:59 05:59 05:59 Intake Total 2500 400 350 Output Total 1300 Balance 1200 400 350 PT 14.9 SEC (12.0-15.0) 04/08/17 14:55 INR 1.17 (0.83-1.16) H 04/08/17 14:55 - Physical Exam Constitutional: no apparent distress Eyes: PERRL Ears, Nose, Mouth, Throat: moist mucous membranes Cardiovascular: regular rate and rhythym Respiratory: no respiratory distress, clear to auscultation Gastrointestinal: normoactive bowel sounds, soft, non-tender abdomen Skin: warm Musculoskeletal: full muscle strength Neurologic: AAOx3 Psychiatric: interacting appropriately ICD10 Worksheet Patient Problems: Problems Problem Status Onset Altered mental status Acute Sepsis Acute Urinary tract infection Acute Acute ischemic stroke Acute CVA (cerebral infarction) Acute Epilepsy with intractable epilepsy Acute Near syncope Acute Neuropathy Acute Pneumonia Acute
[2017-04-10] MEDS: FINASTERIDE 5 MG TAB PO SCH (17:45)
[2017-04-10] MEDS ORDERED: CARBAMAZEPINE 100 MG CHEWABLE TAB PO SCH (18:00)
[2017-04-10] MEDS: MIRTAZAPINE 15 MG TAB PO PRN (20:28)
[2017-04-10] MEDS: MELATONIN 3 MG TAB PO PRN (20:29)
[2017-04-10] MEDS: TAMSULOSIN HCL 0.4 MG CAP PO SCH (20:29)
[2017-04-10] MEDS: LORazepam 1 MG TAB PO SCH (20:29)
[2017-04-11 07:32] VITALS: O2SAT 99
[2017-04-11] MEDS: CLOPIDOGREL BISULFATE 75 MG TAB PO SCH (08:25)
[2017-04-11] MEDS: CHOLECALCIFEROL VIT D3 1,000 UNITS TAB PO SCH (08:25)
[2017-04-11] MEDS: ENOXAPARIN 40 MG/0.4 ML SYR SC SCH (08:27)
[2017-04-11] MEDS: GABAPENTIN 300 MG CAP PO SCH ×3 (08:27→12:34)
[2017-04-11] MEDS: carBAMazepine 200 MG TAB PO SCH ×2 (08:30→12:34)
[2017-04-11 14:40] VITALS: PULSE 64; RESP 18; TEMP 98.1
--- NOTE | 2017-04-11 14:40 | PDIAF ---
- Diagnosis Diagnosis: UTI Code Status: Full Code - Medication Management Discharge Medications: Medications to Continue on Transfer Acetamn/Diphenhydramine 500/25 [Tylenol PM (*)] 1 tab PO HS PRN 05/24/15 [Last Taken 07/10/16] Cholecalciferol Vit D3 [Vitamin D3 (*)] 1,000 units PO DAILY 05/24/15 [Last Taken 05/23/15] Clopidogrel Bisulfate [Plavix (*)] 75 mg PO DAILY 05/24/15 [Last Taken 07/10/16] Finasteride [Proscar 5 MG (*)] 5 mg PO DAILY18 05/24/15 [Last Taken 04/07/17] Gabapentin [Neurontin 300 MG (*)] 300 mg PO ,,,18 05/24/15 [Last Taken 18:00] Gabapentin [Neurontin 300 MG (*)] 600 mg PO HS 05/24/15 [Last Taken 04/07/17] Herbals/Supplements -Info Only 1 each PO HS 05/24/15 [Last Taken 05/23/15] Melatonin [Melatonin 3 MG (*)] 3 mg PO HS PRN 05/24/15 [Last Taken 05/23/15] Tamsulosin HCl [Flomax 0.4 MG (*)] 0.8 mg PO HS 05/24/15 [Last Taken 04/07/17] carBAMazepine [Tegretol] 200 mg PO TID 05/24/15 [Last Taken 07/10/16] LORazepam [Ativan (*)] 2 mg PO HS 07/11/16 [Last Taken 07/10/16] Mirtazapine [Remeron] 22.5 mg PO HS PRN 04/08/17 [Last Taken Unknown] carBAMazepine [Carbamazepine] 100 mg PO HS 04/08/17 [Last Taken 04/07/17] levOFLOXACIN [levAQUIN (*)] 750 mg PO DAILY10 #10 tab 04/11/17 [Last Taken Unknown] Discharge Medications: Refer to the Discharge Home Medication list for PRN reason. - Orders Services needed: Home Care, Registered Nurse, Physical Therapy, Occupational Therapy Home Care Face to Face: I certify that this patient was under my care and that I had the required [id number] encounter meeting the encounter requirements on the discharge day. My findings support the fact that the patient is homebound as defined in CMS Chapter 7 Medicare Benefits Manual 30.1.1, The condition of the patient is such that there exists a normal inability to leave home and consequently, leaving home would require a considerable and taxing effort. Diet Recommendation: no restrictions on diet Activity/Weight Bearing Restrictions: As tolerated, use walker, assistance in shower Additional: Follow up with your urologist through [facility]. - Follow Up Care Current Providers and Referrals: Patient,NotPresent [Unknown] - As per Instructions
--- NOTE | 2017-04-11 14:43 | PCMIDPN ---
Assessment/Plan: Assessment/Plan: * Sepsis due to K. pneumoniae bacteremia of urinary etiology: Clinically improved with antibiotic therapy. Isolate is quinolone susceptible. Repeat blood cultures are no growth. Plan 10 days of levofloxacin for treatment of bacteremia. Advised of side effects including potential for tendinopathy. 04/11/17 14:40 04/11/17 14:41 Subjective: Patient feels better. No abdominal or flank pain. Objective: Vital Signs Temp Pulse Resp BP Pulse Ox 36.6 C 67 16 171/88 H 99 04/11/17 12:05 04/11/17 12:05 04/11/17 12:05 04/11/17 12:05 04/11/17 12:05 Laboratory Results 04/09/17 05:04 04/09/17 05:04 04/10/17 04/11/17 04/12/17 05:59 05:59 05:59 Intake Total 400 450 500 Output Total 700 600 Balance 400 -250 -100 Levofloxacin #2 Antibiotics #4 Blood cultures 04/08/17 2/ K. pneumoniae Blood cultures 04/10/17 2/2 no growth - Physical Exam General Appearance: alert, no apparent distress EENT: pharynx normal, No conjunctival petechiae Cardiac/Chest: regular rate, rhythm, systolic murmur (2/6 LUSB) Extremities: No inflammation Abdomen: non-tender, No distended Back: No CVA tenderness ICD10 Worksheet Patient Problems: Problems Problem Status Onset Altered mental status Acute Sepsis Acute Urinary tract infection Acute Acute ischemic stroke Acute CVA (cerebral infarction) Acute Epilepsy with intractable epilepsy Acute Near syncope Acute Neuropathy Acute Pneumonia Acute
[2017-04-11 16:33] VITALS: BP 175/96
--- NOTE | 2017-04-11 21:48 | GDS ---
[f rep st] DISCHARGE SUMMARY DISCHARGE DIAGNOSES: 1. Severe sepsis, secondary to a urinary source. 2. Klebsiella bacteremia, secondary to urinary tract infection. 3. Urinary tract infection, in the setting of self-catheterization. 4. Benign prostatic hypertrophy. 5. Acute encephalopathy, resolved. 6. Bilateral interstitial infiltrates, resolved. 7. History of cerebrovascular accident. 8. History of seizure disorder. CONSULTANTS: More Peguero MD, Infectious Disease. IMAGING STUDIES/PROCEDURES: 1. Head CT, April 08, 2017, showed no acute intracranial findings. 2. Chest x-ray, April 08, 2017, showed diffuse interstitial thickening throughout both lungs. Repeat chest x-ray April 10, 2017, showed the above findings completely resolved, with minimal residual biba silar linear scarring versus atelectasis. HISTORY: For details, please see the history and physical dated April 08, 2017. In brief, the patien jacy is an 86-year-old male, with a history of benign prostatic hypertrophy requiring daily self-cathet erization, who presents to the emergency department in a confused state with shaking chills. He was admitted to the hospital for further management. HOSPITAL COURSE: The patient was admitted to the medical/surgical unit. It was suspected his acute encephalopathy was secondary to a urinary tract infection based on an abnormal urinalysis. Blood c ultures were obtained and grew Klebsiella pneumonia sensitive to Levaquin. His urine culture also g rew Klebsiella. Followup blood cultures are negative to date at the time of discharge. A Sellers cat heter was placed in the emergency department. He did meet criteria for severe sepsis on arrival, wi th a temperature of 39.3, a heart rate of 115, and elevated lactate. He received aggressive IV flui d resuscitation, and was treated empirically with IV ceftriaxone. His antibiotics have been tailore d to oral Levaquin based on culture data and sensitivities. Infectious Disease consult was obtained for his Klebsiella bacteremia. He was transitioned to oral Levaquin, and monitored for another day in the hospital, to ensure he did not develop any mental status changes, as this is known to cause confusion in the elderly population. He tolerated this medication well. His Sellers catheter was dis continued. He does report urinating independently during the day, and he self-catheterizes only at night. We discussed the risk of infection with leaving in the indwelling Sellers versus the risk of i nfection from self-catheterization. I emphasized the importance of meticulous care during his self- catheterizations to maintain sterility, and prevent contamination and further infection. DISPOSITION: Patient is discharged home in stable condition. FOLLOWUP: Patient instructed to follow up with his primary care provider, as well as his urologist at [facility]. DISCHARGE MEDICATIONS: Please see [employer] for complete updated outpatient medication list. All pr eviously prescribed outpatient medications were continued. New medication on discharge includes lev ofloxacin 750 mg p.o. daily, #10, no refills, to complete a total of 14 days of antibiotic therapy. /[id number]/MODL
== END 2017-04-11 17:25 | disposition home health service (06) | DRG 698 ==
LOC: EDUNIT# → F1N 20:13
PROVIDERS: ADMIT Family Medicine; ATTEND Family Medicine
DX: T83.518A Infection and inflammatory reaction due to other urinary catheter, initial encounter (principal); A41.50 Gram-negative sepsis, unspecified; R65.20 Severe sepsis without septic shock; N39.0 Urinary tract infection, site not specified; G93.40 Encephalopathy, unspecified; E87.1 Hypo-osmolality and hyponatremia; I69.322 Dysarthria following cerebral infarction; N40.3 Nodular prostate with lower urinary tract symptoms; R33.8 Other retention of urine; I10 Essential (primary) hypertension; G62.9 Polyneuropathy, unspecified; G47.33 Obstructive sleep apnea (adult) (pediatric); G40.909 Epilepsy, unspecified, not intractable, without status epilepticus
CPT/HCPCS: 96365; 97116-GP; 97162-GP; 97166-GO; 97530-GO; 97530-GP; 97535-GO; J0690; J0692; J0696; J1650

== ENCOUNTER 2017-04-14 09:56 | Observation (INO) | payer OTHER ==
--- NOTE | 2017-04-14 10:01 | EDPHY ---
HPI/HX/ROS/PE/MDM Narrative: CHIEF COMPLAINT: Possible fall, AMS HPI: The patient is an 86 y/o male, with a history of seizures, arriving via EMS after he was found on the floor of his bathroom. He was discharged from [facility] with diagnosis of UTI early this morning. Upon waking, his found him asleep on the ground in the bathroom. EMS reports the was concerned he had fallen, but the patient tells me he was having difficulty walking due to weakness so he decided to crawl out of the bathroom. EMS also states he initially seemed confused, but became completely oriented en route. The patient denies any pain, chest pain, dyspnea, headache, weakness, paresthesias, or other complaints. He is a poor historian. REVIEW OF SYSTEMS: Patient is a poor historian. PMH: UTI, epilepsy, CVA w/slurred speech, peripheral neuropathy, sleep apnea, BPH, hyponatremia, hypotension, goiter, urinary retention. Prior medical records reviewed including admission 04/08/17 for AMS and UTI. SOCIAL HISTORY: Lives with his . [facility] patient. No alcohol, tobacco, illicit drugs. PHYSICAL EXAM: General:Patient is alert, in no acute distress. ENT:Eyes are normal to inspection. ENT inspection normal. Neck: Normal inspection. Full range of motion. Respiratory:No respiratory distress. Breath sounds normal bilaterally. Cardiovascular: Regular rate and rhythm. Strong peripheral pulses. Normal cap refill. Abdomen:The abdomen is nontender to palpation. There are no peritoneal signs. Back: Normal to inspection. No tenderness to palpation. Skin: Normal color. No rash. Warm and dry. No visible trauma. Extremities: Normal appearance. Full range of motion. Neuro: Oriented x3. Normal motor function. Normal sensory function. ED Course: IV established. Labs drawn including CBC, CHEM, troponin. Patient placed on drafter chief design. 500mL IV NS administered. The 12 lead EKG was interpreted by myself. See hard copy and/or "tracemaster" electronic copy for interpretation. Troponin negative. 1130: Spoke with hospitalist service. Dr. Bradford accepts admission. 1140: Spoke with Jay to determine if patient can be admitted at our facility. They are okay with admission here. Hospitalist is aware. MDM: This patient presents with somewhat vague story of possibly being found down in his bathroom shortly after discharge from another ED this morning. The patient cannot provide much history and no family is here to help. I see no clear signs of ACS, PE, head trauma, CVA or sepsis. The patient requires admission for further workup and observation. - Data Points Laboratory Results: Laboratory Results 04/14/17 10:05 04/14/17 10:05 04/14/17 04/14/17 04/14/17 11:00 10:05 10:05 WBC 5.97 10^3/uL 10^3/uL (3.80-9.50) RBC 4.50 10^6/uL 10^6/uL (4.40-6.38) Hgb 13.5 g/dL L g/dL (13.7-17.5) Hct 40.0 % % (40.0-51.0) MCV 88.9 fL fL (81.5-99.8) MCH 30.0 pg pg (27.9-34.1) MCHC 33.8 g/dL g/dL (32.4-36.7) RDW 13.8 % % (11.5-15.2) Plt Count 221 10^3/uL 10^3/uL (150-400) MPV 8.3 fL L fL (8.7-11.7) Neut % (Auto) 52.3 % % (39.3-74.2) Lymph % (Auto) 31.0 % % (15.0-45.0) [place] % (Auto) 8.9 % % (4.5-13.0) Eos % (Auto) 5.0 % % (0.6-7.6) Baso % (Auto) 0.5 % % (0.3-1.7) Nucleat RBC Rel Count 0.0 % % (0.0-0.2) Absolute Neuts (auto) 3.12 10^3/uL 10^3/uL (1.70-6.50) Absolute Lymphs (auto) 1.85 10^3/uL 10^3/uL (1.00-3.00) Absolute Monos (auto) 0.53 10^3/uL 10^3/uL (0.30-0.80) Absolute Eos (auto) 0.30 10^3/uL 10^3/uL (0.03-0.40) Absolute Basos (auto) 0.03 10^3/uL 10^3/uL (0.02-0.10) Absolute Nucleated RBC 0.00 10^3/uL 10^3/uL (0-0.01) Immature Gran % 2.3 % H % (0.0-1.1) Immature Gran # 0.14 10^3/uL H 10^3/uL (0.00-0.10) Sodium 131 mEq/L L mEq/L (134-144) Potassium 4.7 mEq/L mEq/L (3.5-5.2) Chloride 99 mEq/L mEq/L (97-110) Carbon Dioxide 25 mEq/l mEq/l (22-31) Anion Gap 7 mEq/L L mEq/L (8-16) BUN 10 mg/dL mg/dL (7-23) Creatinine 0.7 mg/dL mg/dL (0.7-1.3) Estimated GFR > 60 Glucose 83 mg/dL mg/dL (70-100) Calcium 8.7 mg/dL mg/dL (8.5-10.4) Troponin I < 0.012 ng/mL ng/mL (0-0.034) Urine Color Pending Urine Appearance Pending Urine pH Pending Ur Specific [place] Pending Urine Protein Pending Urine Ketones Pending Urine Blood Pending Urine Nitrate Pending Urine Bilirubin Pending Urine Urobilinogen Pending Ur Leukocyte Esterase Pending Urine Glucose Pending Medications Given: Discontinued Medications Sodium Chloride (Ns) 500 mls @ 0 mls/hr IV ONCE ONE PRN Reason: As Directed Stop: 04/14/17 10:29 Last Admin: 04/14/17 10:42 Dose: 500 mls General Initial Vital Signs: Initial Vital Signs Temperature (C) 35.6 C L 04/14/17 10:17 Heart Rate 56 L 04/14/17 10:17 Respiratory Rate 12 04/14/17 10:17 Blood Pressure 171/90 H 04/14/17 10:17 O2 Sat (%) 98 04/14/17 10:17 O2 Delivery Mode Room Air Allergies/Adverse Reactions: phenytoin sodium [From Dilantin] Allergy (Verified 07/11/16 09:43) phenytoin sodium extended [From Dilantin] Allergy (Verified 07/11/16 09:43) Home Medications: Medication Instructions Recorded Acetamn/Diphenhydramine 500/25 1 tab PO HS PRN 05/24/15 [Tylenol PM (*)] Cholecalciferol Vit D3 [Vitamin D3 1,000 units PO DAILY 05/24/15 (*)] Clopidogrel Bisulfate [Plavix (*)] 75 mg PO DAILY 05/24/15 Finasteride [Proscar 5 MG (*)] 5 mg PO DAILY18 05/24/15 Gabapentin [Neurontin 300 MG (*)] 300 mg PO 07,,,18 05/24/15 Gabapentin [Neurontin 300 MG (*)] 600 mg PO HS 05/24/15 Herbals/Supplements -Info Only 1 each PO HS 05/24/15 Melatonin [Melatonin 3 MG (*)] 3 mg PO HS PRN 05/24/15 Tamsulosin HCl [Flomax 0.4 MG (*)] 0.8 mg PO HS 05/24/15 carBAMazepine [Tegretol] 200 mg PO TID 05/24/15 LORazepam [Ativan (*)] 1.5 - 2 mg PO HS 07/11/16 carBAMazepine [Carbamazepine] 100 mg PO HS 04/08/17 levOFLOXACIN [levAQUIN (*)] 750 mg PO DAILY10 #10 tab 04/11/17 Departure - Departure Disposition: [facility] Inpatient Acute Clinical Impression: Failure to thrive Qualifiers: Failure to thrive age range: in adult Qualified Code(s): R62.7 - Adult failure to thrive Altered mental status Qualifiers: Altered mental status type: disorientation Qualified Code(s): R41.0 - Disorientation, unspecified Condition: Fair Report Scribed for: Carrington Tran Report Scribed by: Danica Arboleda Date of Report: 04/14/17 Time of Report: 10:28 Physician Review and Approval Statement: Portions of this note were transcribed by an ED scribe. I personally performed the history, physical exam, and medical decision making; and confirm the accuracy of the information in the transcribed note.
[2017-04-14] MEDS ORDERED: NS 500 ML IV ONE (10:28)
[2017-04-14 10:36] LABS: % IMMATURE GRANULYOCYTES 2.3 % (0.0-1.1); ABSOLUTE IMMATURE GRANULOCYTES 0.14 10^3/uL (0.00-0.10); ADD DIFF? NO; ADD MORPH? NO; ADD SCAN? NO; ATYPICAL LYMPHOCYTE FLAG 0 (0-99); FRAGMENT RBC FLAG 0 (0-99); HEMOGLOBIN 13.5 g/dL (13.7-17.5); LEFT SHIFT FLG 20 (0-99); LIPEMIA HEMOLYSIS FLAG 90 (0-99); MEAN CELL HEMOGLOBIN CONCENTR. 33.8 g/dL (32.4-36.7); MEAN CELL VOLUME 88.9 fL (81.5-99.8); MEAN PLATELET VOLUME 8.3 fL (8.7-11.7); PLATELET CLUMPS FLAG 0 (0-99); PLATELET COUNT 221 10^3/uL (150-400); RED CELL DISTRIBUTION WIDTH 13.8 % (11.5-15.2)
[2017-04-14 10:39] LABS: ANION GAP 7 mEq/L (8-16); CALCIUM 8.7 mg/dL (8.5-10.4); CARBON DIOXIDE 25 mEq/l (22-31); CHLORIDE 99 mEq/L (97-110); CREATININE 0.7 mg/dL (0.7-1.3); GLOMERULAR FILTRATION RATE > 60; GLUCOSE 83 mg/dL (70-100); POTASSIUM 4.7 mEq/L (3.5-5.2); SODIUM 131 mEq/L (134-144)
--- NOTE | 2017-04-14 10:49 | CPEKG ---
Heart Rate: 58 RR Interval: 1034 P-R Interval: 236 QRSD Interval: 112 QT Interval: 468 QTC Interval: 460 P Mccook: 41 QRS Mccook: -49 T Wave Mccook: 28 EKG Severity - ABNORMAL ECG - EKG Impression: UNKNOWN RHYTHM, IRREGULAR RATE 42-68 EKG Impression: FIRST DEGREE AV BLOCK EKG Impression: LEFT ANTERIOR FASCICULAR BLOCK EKG Impression: CONSIDER ANTEROSEPTAL INFARCT Electronically Signed By: Carrington Tran 14-Apr-2017 15:36:44
[2017-04-14 10:50] LABS: TROPONIN I < 0.012 ng/mL (0-0.034)
[2017-04-14 11:48] LABS: COLOR YELLOW; LEUKOCYTE ESTERASE,URINE NEGATIVE (NEGATIVE); NITRITE,URINE NEGATIVE (NEGATIVE)
[2017-04-14] MEDS ORDERED: ACETAMN/DIPHENHYDRAMINE 500/25MG TAB PO PRN (14:26)
[2017-04-14] MEDS ORDERED: MELATONIN 3 MG TAB PO PRN (14:26)
--- NOTE | 2017-04-14 15:07 | GHP ---
[f rep st] HISTORY AND PHYSICAL DATE OF ADMISSION: 04/14/2017 CHIEF COMPLAINT: Altered mental status. HISTORY OF PRESENT ILLNESS: This is an 86-year-old male, whom I admitted to [facility] on 04/08/2017, after he presented with altered mental status, and was found to have a urinary tract infection. He was subsequently discharged from [facility] on 04/11/2017, back to [facility], with the diagnosis of klebsiella bacteremia secondary to urinary tract infection. During the time of my exam, the patient was seen without his family in the room. The patient is a very poor historian. Per ER report, the patient was found on the floor of his apartment this morning, where he was taken to [facility], and ultimately discharged home. He was then brought to the hospital here, due to persistent confusion. The patient tells me that last night he remembers waking up and slipped while walking to the bathroom. He could not get up and spent the night on the floor. He denies having any seizure. He denies any fevers or chills. He does have a history of BPH, and previously performed self-catheterizations. The patient now tells me that he has been afraid to self-catheterize, and has been wearing Depend undergarment. PAST MEDICAL HISTORY: 1. Discharged from [facility] on 04/11/2017, with a diagnosis of sepsis severe secondary to klebsiella bacteremia and urinary tract infection. 2. BPH. 3. Bilateral interstitial infiltrates have resolved. 4. History of CVA. 5. History of seizures. 6. Obstructive sleep apnea. 7. Hyponatremia. 8. Hypertension. 9. Goiter. 10. Urinary retention. 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 PAST SURGICAL HISTORY: Denies. HOME MEDICATIONS: Reviewed. Refer to [facility] for details. ALLERGIES: Dilantin. SOCIAL HISTORY: He lives with his at [facility]. He denies any alcohol, tobacco, or illicit drug use. FAMILY HISTORY: Reviewed and noncontributory. REVIEW OF SYSTEMS: Comprehensive 10-point review of systems was done and is negative, except for as mentioned in the HPI. PHYSICAL EXAM: VITAL SIGNS: Blood pressure 162/85, pulse of 56, respiratory rate 14, O2 saturation 94% on room air, temperature afebrile. GENERAL: In no acute distress. HEAD: Normocephalic, atraumatic. EYES: PERRLA. Sclerae anicteric. MOUTH: Moist mucous membranes. NECK: Supple. No lymphadenopathy. CARDIOVASCULAR: S1, S2. No JVD. No lower extremity edema. PULMONARY: Lungs are clear. No wheezes, rales, or rhonchi. ABDOMEN: Soft, nontender, nondistended. No guarding or rebound tenderness. Normoactive bowel sounds. EXTREMITIES: No clubbing or cyanosis. NEURO: Cranial nerves 2 through 12 grossly intact. No focal motor or sensory deficits. Alert and oriented to person and place, but not time. SKIN: Clear. No rashes. I did not examine the patient for sacral decubitus. DIAGNOSTICS: WBC is 5.97, hemoglobin 13.5, hematocrit 40, platelets 221. Venous lactic acid was 0.8. Sodium 131, potassium 4.7, chloride 99, BUN 10, creatinine 0.7, glucose 87. Troponin less than 0.012. UA unremarkable. Chest x-ray, which I visualized and personally interpreted, negative for pneumonia. EKG, which I also visualized and personally interpreted, rate 58 beats per minute, irregular, possible wandering pacemaker. Blood cultures from 04/08/2017 , were reviewed, showing a klebsiella. ASSESSMENT: This is an 86-year-old male presenting with altered mental status. Differential diagnosis includes adverse affect from levofloxacin/ativan versus arrhythmia versus seizure vs supra-therapeutic Carbamazepine. PLAN: 1. Monitor on telemetry. 2. Will discontinue levofloxacin, and start ceftriaxone while in the hospital, to complete 10 days of treatment for his klebsiella bacteremia, which should end on April 19. 3. IV hydration. 4. Monitor for seizures. 5 Check carbamazepine level 6. Decrease p.m. dose of Ativan to 1 mg and consider further tapering as outpatient /[id number]/MODL MTDD
[2017-04-14] MEDS ORDERED: carBAMazepine 200 MG TAB PO SCH ×2 (16:00→21:00)
[2017-04-14] MEDS: GABAPENTIN 300 MG CAP PO SCH (17:08)
[2017-04-14] MEDS ORDERED: FINASTERIDE 5 MG TAB PO SCH (18:00)
[2017-04-14] MEDS ORDERED: LORazepam 1 MG TAB PO SCH (21:00)
[2017-04-14] MEDS ORDERED: TAMSULOSIN HCL 0.4 MG CAP PO SCH (21:00)
[2017-04-14] MEDS ORDERED: Herbals/Supplements -Info Only PO SCH (21:00)
[2017-04-14] MEDS ORDERED: GABAPENTIN 300 MG CAP PO SCH (21:00)
[2017-04-15] MEDS: GABAPENTIN 300 MG CAP PO SCH ×3 (08:20→13:41)
[2017-04-15] MEDS: carBAMazepine 200 MG TAB PO SCH ×2 (08:20→10:53)
[2017-04-15] MEDS ORDERED: CLOPIDOGREL BISULFATE 75 MG TAB PO SCH (09:00)
[2017-04-15] MEDS ORDERED: CHOLECALCIFEROL VIT D3 1,000 UNITS TAB PO SCH (09:00)
[2017-04-15 11:37] VITALS: BP 125/71; PULSE 78; RESP 18; TEMP 97.7; O2SAT 95
--- NOTE | 2017-04-15 13:07 | PDIAF ---
- Diagnosis Diagnosis: generalized weakness Code Status: Full Code - Medication Management Discharge Medications: Medications to Continue on Transfer Acetamn/Diphenhydramine 500/25 [Tylenol PM (*)] 1 tab PO HS PRN 05/24/15 [Last Taken 07/10/16] Cholecalciferol Vit D3 [Vitamin D3 (*)] 1,000 units PO DAILY 05/24/15 [Last Taken 04/13/17] Clopidogrel Bisulfate [Plavix (*)] 75 mg PO DAILY 05/24/15 [Last Taken 04/13/17] Finasteride [Proscar 5 MG (*)] 5 mg PO DAILY18 05/24/15 [Last Taken 04/13/17] Gabapentin [Neurontin 300 MG (*)] 300 mg PO ,,,18 05/24/15 [Last Taken 11/29] Gabapentin [Neurontin 300 MG (*)] 600 mg PO HS 05/24/15 [Last Taken 04/13/17] Herbals/Supplements -Info Only 1 each PO HS 05/24/15 [Last Taken 05/23/15] Melatonin [Melatonin 3 MG (*)] 3 mg PO HS PRN 05/24/15 [Last Taken 05/23/15] Tamsulosin HCl [Flomax 0.4 MG (*)] 0.8 mg PO HS 05/24/15 [Last Taken 04/13/17] carBAMazepine [Tegretol] 200 mg PO TIDMEAL 05/24/15 [Last Taken 04/13/17] LORazepam [Ativan (*)] 1.5 - 2 mg PO HS 07/11/16 [Last Taken 04/13/17] carBAMazepine [Carbamazepine] 100 mg PO HS 04/08/17 [Last Taken 04/13/17] levOFLOXACIN [levAQUIN (*)] 750 mg PO DAILY10 #10 tab 04/11/17 [Last Taken 04/13] Discharge Medications: Refer to the Discharge Home Medication list for PRN reason. - Orders Services needed: Physical Therapy, Occupational Therapy Diet Recommendation: no restrictions on diet Diet Texture: Regular Texture Diet - Follow Up Care Current Providers and Referrals: Patient,NotPresent [Unknown] - As per Instructions
--- NOTE | 2017-04-15 16:19 | GDS ---
[f rep st] DISCHARGE SUMMARY DISCHARGE DIAGNOSES: 1. Resolved altered mental status/acute encephalopathy of unclear etiology. Differential diagnosis includes adverse effect from Levaquin versus Ativan versus less likely seizure. 2. History of BPH. 3. Recently diagnosed Klebsiella bacteremia and urinary tract infection. 4. 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 CONSULTANTS: None. HOSPITAL COURSE BY PROBLEM: Delirium/acute encephalopathy: The patient presented to the hospital w ith reported confusion. At the time of my exam yesterday had already cleared. [facility]. I am worried that his episode last night may have been rel ated to the large doses of Ativan that he takes at night. I brought this up to the patient on the d ay of discharge. He think that this is probably not the case since he has been on Ativan for many ma ny years. He has had no witnessed seizures in the hospital. A Tegretol level was done that was wit hin normal range. On the day of discharge, the patient was seen by PT who recommended [facility]. At 1st the patient was resistant to this, but has changed his mind a nd is now agreeable to go to rehab. PHYSICAL EXAMINATION: VITAL SIGNS: On day of discharge blood pressure 125/71, pulse 78, respirator y rate 18, O2 saturation 95% on room air. GENERAL: No acute distress. HEART: S1, S2. LUNGS: Cl ear. ABDOMEN: Soft. EXTREMITIES: No edema. NEUROLOGIC: No focal motor or sensory deficits. DIAGNOSTICS DONE THIS HOSPITAL STAY: None. DISCHARGE MEDICATIONS: Please refer to discharge medication reconciliation in [facility] for details. DISCHARGE INSTRUCTIONS: The patient will be discharged from the hospital where he should complete h is 10 days of levofloxacin. If his mentation continues to be compromised, it may be reasonable to s top the Levaquin. However, he really should complete a 10-day course of antibiotics given his Klebsi kris bacteremia. He may also consider down titrating his evening dose of benzodiazepines. /[id number]/MODL
== END 2017-04-15 15:01 ==
LOC: EDUNIT# → F3E 14:03
PROVIDERS: ADMIT Family Medicine; ATTEND Family Medicine
DX: R53.1 Weakness (principal); R41.82 Altered mental status, unspecified; R62.7 Adult failure to thrive; N40.1 Benign prostatic hyperplasia with lower urinary tract symptoms; G62.0 Drug-induced polyneuropathy; G40.909 Epilepsy, unspecified, not intractable, without status epilepticus; I69.928 Other speech and language deficits following unspecified cerebrovascular disease; G47.33 Obstructive sleep apnea (adult) (pediatric); I10 Essential (primary) hypertension; Z87.440 Personal history of urinary (tract) infections; Z91.81 History of falling
CPT/HCPCS: 71020; 93005; 97161; 97166; 97530; 97535; 99285; G0378; G8978; G8979; G8987; G8989; J0696

== ENCOUNTER 2018-01-12 04:08 | Emergency (ER) | payer OTHER ==
--- NOTE | 2018-01-12 04:37 | EDPHY ---
H & P Time Seen by Provider: 01/12/18 04:10 HPI/ROS: Chief Complaint: Fall, head injury HPI: 87-year-old male got up to go the bathroom this morning when he lost his balance, fell striking the right side of his head on a hard object in the home. No loss of conscious. Has had significant about of bleeding from his scalp laceration. No neck pain. Denies any other injuries. He does take Plavix for for presumed CVA in the past. No nausea or vomiting. ROS: 10 point Review of Systems is negative except as noted in the HPI. Family History: non-contributory Physical Exam: Gen: Awake, Alert, Airway Intact HEENT: Head: Patient has a 2.5 cm laceration on his right parietal scalp with active arterial pulsatile bleeding. No bony deformity noted. Eyes: PERRLA, EOMI Nose: No epistaxis Mouth: Normal dentition, Airway patent Face: No deformity Neck: non-tender, no stepoff, Full ROM without pain Chest: non-tender, lungs CTA Heart: normal heart tones Abd: soft, non-tender, atraumatic Pelvis: non-tender, stable to AP and Lateral compression Back: atraumatic, no midline tenderness Ext: atramatic, full ROM Skin: no rash Neuro: CN II-XII intact, Strength 5/5 in all extremities, sensation intact in all extremities - Personal History Tetanus Vaccine Date: < 10 years - Medical/Surgical History Hx Asthma: No Hx Chronic Respiratory Disease: No Hx Diabetes: No Hx Cardiac Disease: Yes Hx Renal Disease: No Hx Cirrhosis: No Hx Alcoholism: No Hx HIV/AIDS: No Hx Splenectomy or Spleen Trauma: No Other PMH: stroke 2014. epilepsy. neuropathy, ALFREDO, HTN,BPH, - Social History Smoking Status: Never smoked Constitutional: Initial Vital Signs Temperature (C) 36.7 C 01/12/18 04:10 Heart Rate 55 L 01/12/18 04:10 Respiratory Rate 18 01/12/18 04:10 Blood Pressure 173/90 H 01/12/18 04:10 O2 Sat (%) 97 01/12/18 04:10 O2 Delivery Mode Room Air Allergies/Adverse Reactions: phenytoin sodium [From Dilantin] Allergy (Verified 07/11/16 09:43) phenytoin sodium extended [From Dilantin] Allergy (Verified 07/11/16 09:43) Home Medications: Medication Instructions Recorded Acetamn/Diphenhydramine 500/25 1 tab PO HS PRN 05/24/15 [Tylenol PM (*)] Cholecalciferol Vit D3 [Vitamin D3 1,000 units PO DAILY 05/24/15 (*)] Clopidogrel Bisulfate [Plavix (*)] 75 mg PO DAILY 05/24/15 Finasteride [Proscar 5 MG (*)] 5 mg PO DAILY18 05/24/15 Gabapentin [Neurontin 300 MG (*)] 300 mg PO 07,,,18 05/24/15 Gabapentin [Neurontin 300 MG (*)] 600 mg PO HS 05/24/15 Herbals/Supplements -Info Only 1 each PO HS 05/24/15 Melatonin [Melatonin 3 MG (*)] 3 mg PO HS PRN 05/24/15 Tamsulosin HCl [Flomax 0.4 MG (*)] 0.8 mg PO HS 05/24/15 carBAMazepine [Tegretol] 200 mg PO TIDMEAL 05/24/15 LORazepam [Ativan (*)] 1.5 - 2 mg PO HS 07/11/16 carBAMazepine [Carbamazepine] 100 mg PO HS 04/08/17 levOFLOXACIN [levAQUIN (*)] 750 mg PO DAILY10 #10 tab 04/11/17 Medical Decision Making - Diagnostics Imaging Results: CT scan of the head and cervical spine show atrophy but no acute injuries per Dr. Werner. Procedures: Procedure: Laceration repair. Verbal consent was obtained from the patient. The 2.5 cm laceration on the right scalp was anesthetized in the usual fashion. The wound was irrigated, draped and explored to its base with a gloved finger. There were no deep structures involved. No tendon injury was identified. The wound was repaired with a complex layered closure. The arterial bleeding was identified and ligated with a purse string deep suture with 4 0 Vicryl. Remainder of the deep structures were closed with 340 Vicryl horizontal mattress sutures. The skin was then closed with 5, 4 0 Ethilon simple interrupted sutures.. The wound repair was [ ]. The procedure was performed by myself. ED Course/Re-evaluation: 87-year-old male status post mechanical fall. Large head laceration. H&H are normal. CT scans head neck are normal. Patient is awake alert acting appropriately. Lacerations been repaired rule discharge with follow-up as an outpatient, return for any concerns. - Data Points Laboratory Results: Laboratory Results 01/12/18 05:00 01/12/18 05:00 Departure - Departure Disposition: Home, Routine, Self-Care Clinical Impression: Scalp laceration, Fall Condition: Good Instructions: Care For Your Stitches (ED), Laceration (ED), Fall Prevention for Older Adults (ED) Additional Instructions: Sutures need to be removed in 10 days. Follow up with primary care physician in 3-4 days for further evaluation. Return to the emergency department for increasing redness, discharge from the wound, fevers, chills, increasing falls, worsening headache, or any other concerns. Referrals: Patient,NotPresent [Unknown] - As per Instructions
[2018-01-12 05:12] LABS: PLATELET COUNT 246 10^3/uL (150-400)
[2018-01-12 05:21] VITALS: RESP 18
[2018-01-12 05:23] LABS: INR 1.09 (0.83-1.16); PROTIME(PATIENT) 14.3 SEC (12.0-15.0)
[2018-01-12 07:17] VITALS: BP 147/74; PULSE 72; TEMP 97.9; O2SAT 93
== END 2018-01-12 07:26 | disposition home or self-care (01) ==
LOC: EDUNIT#
PROC: 0HQ0XZZ Repair Scalp Skin, External Approach (ICD-10-PCS; principal; 2018-01-12)
DX: S01.01XA Laceration without foreign body of scalp, initial encounter (principal); W01.198A Fall on same level from slipping, tripping and stumbling with subsequent striking against other object, initial encounter; Y92.009 Unspecified place in unspecified non-institutional (private) residence as the place of occurrence of the external cause; Y93.89 Activity, other specified; I10 Essential (primary) hypertension

== ENCOUNTER 2018-03-29 09:06 | Emergency (ER) | payer OTHER ==
[2018-03-29 09:29] LABS: PLATELET COUNT 316 10^3/uL (150-400)
--- NOTE | 2018-03-29 09:31 | CPEKG ---
Heart Rate: 58 RR Interval: 1034 P-R Interval: 224 QRSD Interval: 104 QT Interval: 456 QTC Interval: 448 P [place]: 69 QRS [place]: -54 T Wave [place]: 19 EKG Severity - ABNORMAL ECG - EKG Impression: SINUS RHYTHM EKG Impression: FIRST DEGREE AV BLOCK EKG Impression: LEFT ANTERIOR FASCICULAR BLOCK EKG Impression: PROBABLE ANTEROSEPTAL INFARCT, AGE INDETERM Electronically Signed By: Emigdio Morataya 29-Mar-2018 10:01:18
--- NOTE | 2018-03-29 09:38 | EDPHY ---
H & P Smoking Status: Never smoked Time Seen by Provider: 03/29/18 09:11 HPI/ROS: CHIEF COMPLAINT: Unwitnessed fall, head injury HISTORY OF PRESENT ILLNESS: 87-year-old male presents to the emergency department by ambulance after he had an unwitnessed fall at [facility]. The patient states "I woke up falling". The patient does have a history of epilepsy however he does not think that he had a seizure. There was no history of confusion or postictal state per EMS. The patient has a history of poor balance and uses a walker. He thinks that he may have been getting up to go to the bathroom but he does not remember. It is unclear what he hit his head on. Unknown loss of consciousness. He denies a headache. Denies neck or back pain. He denies pain in his chest or difficulty breathing. He complains of some abrasions to his elbow and his knees. He denies abdominal pain. He states that he is hungry. REVIEW OF SYSTEMS: Constitutional: No fever, no chills. Eyes: No double or blurry vision. ENT: No sore throat. Respiratory: No cough, no shortness of breath. Cardiac: No chest pain. Gastrointestinal: No abdominal pain, vomiting or diarrhea. Genitourinary: No dysuria. Musculoskeletal: No neck or back pain. Skin: Abrasions. No rashes. Neurological: No headache. (Isabella Stahl) Past Medical/Surgical History: Epilepsy, CVA, poor balance (Isabella Stahl) Social History: and lives with his at [facility] in assisted living (Isabella Stahl ) Physical Exam: General Appearance: Alert, no distress. 184/99, afebrile. Right anterior forehead abrasion. Eyes: Pupils equal and round. Extraocular motions are all intact. ENT: Mouth: Mucous membranes moist. White adherent patches noted to his tongue and soft palate. Respiratory: No wheezing, rhonchi, or rales, lungs are clear to auscultation. Cardiovascular: Regular rate and rhythm. Gastrointestinal: Abdomen is soft and nontender, no masses, no rebound or guarding, bowel sounds normal. Neurological: Alert and oriented x 3, cranial nerves II through XII grossly intact Skin: Abrasions to the anterior aspect of both knees and posterior aspect of the right elbow. Warm and dry, no rashes. Musculoskeletal: Nontender to palpate along the cervical, thoracic or lumbar spine. Neck is supple. Extremities: Full range of motion and no peripheral edema. Psychiatric: Patient is oriented X 3, there is no agitation. (Isabella Stahl) Constitutional: Initial Vital Signs Temperature (C) 36.5 C 03/29/18 09:10 Heart Rate 60 03/29/18 09:10 Respiratory Rate 18 03/29/18 09:10 Blood Pressure 184/99 H 03/29/18 09:10 O2 Sat (%) 98 03/29/18 09:10 O2 Delivery Mode Room Air Allergies/Adverse Reactions: phenytoin sodium [From Dilantin] Allergy (Verified 03/29/18 09:11) phenytoin sodium extended [From Dilantin] Allergy (Verified 03/29/18 09:11) Home Medications: Medication Instructions Recorded Acetamn/Diphenhydramine 500/25 1 tab PO HS PRN 05/24/15 [Tylenol PM (*)] Cholecalciferol Vit D3 [Vitamin D3 1,000 units PO DAILY 05/24/15 (*)] Clopidogrel Bisulfate [Plavix (*)] 75 mg PO DAILY 05/24/15 Finasteride [Proscar 5 MG (*)] 5 mg PO DAILY18 05/24/15 Gabapentin [Neurontin 300 MG (*)] 300 mg PO 07,,,18 05/24/15 Gabapentin [Neurontin 300 MG (*)] 600 mg PO HS 05/24/15 Herbals/Supplements -Info Only 1 each PO HS 05/24/15 Melatonin [Melatonin 3 MG (*)] 3 mg PO HS PRN 05/24/15 Tamsulosin HCl [Flomax 0.4 MG (*)] 0.8 mg PO HS 05/24/15 carBAMazepine [Tegretol] 200 mg PO TIDMEAL 05/24/15 LORazepam [Ativan (*)] 1.5 - 2 mg PO HS 07/11/16 carBAMazepine [Carbamazepine] 100 mg PO HS 04/08/17 levOFLOXACIN [levAQUIN (*)] 750 mg PO DAILY10 #10 tab 04/11/17 Clopidogrel 03/29/18 Docusate Sodium 03/29/18 Finasteride 05/17/18 MIRTAZAPINE 03/29/18 Vitamin B-12 03/29/18 Medical Decision Making - Diagnostics Imaging: Discussed imaging studies w/ call manager Radiologist - Diagnostics EKG Interpretation: 12-lead EKG interpreted by me; official reading is in trace master. My interpretation is sinus rhythm with first-degree AV block and left anterior fascicular block, late anterior RS transition probable old anteroseptal MT. ( Emigdio Morataya) Imaging Results: Imaging Impressions Cervical Spine CT 03/29/18 09:22 Impression: 1. No definite fracture. 2. Anterior cervical diskectomies and fusion hardware at C4, C5 and C6 appearing intact. 3. Multilevel moderate to severe degenerative disk disease and facet arthropathy , especially at C3-C4, C6-C7 and C7-T1 resulting in at least moderate central canal stenosis at C3-C4, C6-C7, and C7-T1, and variable moderate to severe multilevel neural foraminal stenosis. 4. If there is persistent pain or neurological deficit, recommend MR cervical spine and consider flexion and extension views, if clinically indicated. Findings and recommendations discussed with Emergency Department, Isabella Stahl at 1100 hours, 03/29/2018. Final report concurs with initial preliminary interpretation. Head CT 03/29/18 09:22 Impression: 1. Mild atrophy. 2. No acute hemorrhage, hydrocephalus, or mass effect. 3. Cerebrovascular atherosclerosis. 4. No definite acute infarct. 5. Moderate microvascular ischemic gliosis. 6. No epidural or subdural hematoma. Findings and recommendations discussed with Emergency Department physician, Isabella Stahl at 1050 hours, 03/29/2018. Final report concurs with initial preliminary interpretation. ED Course/Re-evaluation: 87-year-old male presents to the emergency department after he fell out of bed this morning. CT imaging of his head and cervical spine reveal degenerative changes without fracture or intracranial bleeding. The patient has normal laboratory studies. He is a DNR. The case was discussed with Dr. Emigdio Morataya, secondary supervising physician, who did not directly evaluate the patient but agrees with treatment and plan. Laboratory studies were within normal limits. He will be discharged back to [facility]. He is comfortable being discharged. (Isabella Stahl ) Differential Diagnosis: Including but not limited to vasovagal syncope, electrolyte abnormality, seizure , mechanical fall, closed head injury, cervical spine fracture (Isabella Stahl) Other Provider: PHYSICIAN DOCUMENTATION: The patient was evaluated and managed by the Physician [employer] and myself. I have reviewed the chart and agree with the findings and plan of care as documented. In addition, I examined the patient myself at on arrival. History confirmed as fall with forehead hematoma, denies chest pain or headache or weakness or numbness in extremities. Physical findings as follows: Forehead hematoma but alert and follows commands. I am the secondary supervising physician. (Emigdio Morataya) - Data Points Laboratory Results: Laboratory Results 03/29/18 08:45 03/29/18 08:45 03/29/18 03/29/18 08:45 08:45 WBC 6.74 10^3/uL 10^3/uL (3.80-9.50) RBC 5.17 10^6/uL 10^6/uL (4.40-6.38) Hgb 15.6 g/dL g/dL (13.7-17.5) Hct 47.0 % % (40.0-51.0) MCV 90.9 fL fL (81.5-99.8) MCH 30.2 pg pg (27.9-34.1) MCHC 33.2 g/dL g/dL (32.4-36.7) RDW 13.9 % % (11.5-15.2) Plt Count 316 10^3/uL 10^3/uL (150-400) MPV 8.4 fL L fL (8.7-11.7) Neut % (Auto) 59.9 % % (39.3-74.2) Lymph % (Auto) 27.3 % % (15.0-45.0) Schley % (Auto) 8.2 % % (4.5-13.0) Eos % (Auto) 3.9 % % (0.6-7.6) Baso % (Auto) 0.4 % % (0.3-1.7) Nucleat RBC Rel Count 0.0 % % (0.0-0.2) Absolute Neuts (auto) 4.04 10^3/uL 10^3/uL (1.70-6.50) Absolute Lymphs (auto) 1.84 10^3/uL 10^3/uL (1.00-3.00) Absolute Monos (auto) 0.55 10^3/uL 10^3/uL (0.30-0.80) Absolute Eos (auto) 0.26 10^3/uL 10^3/uL (0.03-0.40) Absolute Basos (auto) 0.03 10^3/uL 10^3/uL (0.02-0.10) Absolute Nucleated RBC 0.00 10^3/uL 10^3/uL (0-0.01) Immature Gran % 0.3 % % (0.0-1.1) Immature Gran # 0.02 10^3/uL 10^3/uL (0.00-0.10) Sodium 139 mEq/L mEq/L (135-145) Potassium 4.9 mEq/L mEq/L (3.3-5.0) Chloride 102 mEq/L mEq/L (97-110) Carbon Dioxide 26 mEq/l mEq/l (22-31) Anion Gap 11 mEq/L mEq/L (8-16) BUN 19 mg/dL mg/dL (7-23) Creatinine 0.7 mg/dL mg/dL (0.7-1.3) Estimated GFR > 60 Glucose 83 mg/dL mg/dL (70-100) Calcium 9.0 mg/dL mg/dL (8.5-10.4) Departure - Departure Disposition: Home, Routine, Self-Care Clinical Impression: Traumatic hematoma of forehead Qualifiers: Encounter type: initial encounter Qualified Code(s): S00.83XA - Contusion of other part of head, initial encounter Condition: Good Instructions: Head Injury (ED) Additional Instructions: Avoid any activity that might put you at risk for another head injury for at least 1 week. Return to the emergency department if you developed headache, vomiting, altered mental status, or if you feel worse in any way. Referrals: [facility] ,. [Edm Groups for Call Sched] - As per Instructions
[2018-03-29 12:19] VITALS: BP 178/87
--- NOTE | 2018-03-29 12:38 | ASMTCMCOM ---
CM Note CM Note Notes: Pt presented to the ED via EMS from his Assisted Living apartment at [facility] [place] ([phone]) after having a fall at home and hitting his head. It is unknown what the cause of the fall was as pt doesn't remember. Pt has a history of epilepsy but its not certain whether a seizure caused his fall. Requested to assist patient with getting home. Spoke with Gifty at [facility] and they do not have transportation available. Pt's , Lucina, lives with patient but does not drive. Pt's son, Ryder ([phone]) and daughter, Carla, both live out of state. Pt is not a current registered member of [employer]. This CM arranged for a Z-trip cab for pt to return to [facility] and their staff will meet him at the cab with either a wheelchair or walker and a pair of his shoes, and make sure he gets into his apartment safely. Pt has Hassan. Pt states he receives RN/PT/OT through [facility] ([phone]). This CM called [facility] and updated them on pt's ED visit and discharge instructions. Updates sent via [employer]. Pt's discharge instructions and a copy of the ED MD Report given to patient to give to [facility] staff. CM available for further assistance if needed. Date Signed: 03/29/2018 12:37 PM Electronically Signed By:Joselin Kaur RN
--- NOTE | 2018-03-29 12:47 | ASDISCHSUM ---
Discharge Information Plan Status:Assisted Living Medically Cleared to Leave: Discharge Date:03/29/2018 12:19 PM CM D/C Disposition:Assisted Living ADT D/C Disposition:Home, Routine, Self-Care Projected Discharge Date:03/29/2018 12:19 PM Transportation at D/C:[employer] Discharge Delay Reason: Follow-Up Date:03/29/2018 12:19 PM Discharge Slot: Final Diagnosis: Placement Information Patient Contact Information Contact Name:ELENA Relationship: Address:[facility] [id number] [facility] Phone: City:[place] Alternate Phone: [facility]/Zip Code:[place] [address] Email: Financial Information Financial Class:Medicare Advantage Plans Primary Plan Desc:[employer] MEDICARE ADVANTAGE OUTPAT Primary Plan Number:[id number] Secondary Plan Desc: Secondary Plan Number: Assessment Information [facility] Progress Note CM Note CM Note Notes: Pt presented to the ED via EMS from his Assisted Living apartment at [facility] ([phone]) after having a fall at home and hitting his head. It is unknown what the cause of the fall was as pt doesn't remember. Pt has a history of epilepsy but its not certain whether a seizure caused his fall. Requested to assist patient with getting home. Spoke with Gifty at [facility] and they do not have transportation available. Pt's , Lucina, lives with patient but does not drive. Pt's son, Ryder ([phone]) and daughter, Carla, both live out of [facility]. Pt is not a current registered member of [employer]. This CM arranged for a Z-trip cab for pt to return to [facility] and their staff will meet him at the cab with either a wheelchair or walker and a pair of his shoes, and make sure he gets into his apartment safely. Pt has Hassan. Pt states he receives RN/PT/OT through [facility] ([phone]). This CM called [employer] and updated them on pt's ED visit and discharge instructions. Updates sent via [employer]. Pt's discharge instructions and a copy of the ED MD Report given to patient to give to [facility] staff. CM available for further assistance if needed. Date Signed: 03/29/2018 12:37 PM Electronically Signed By:Joselin Kaur RN Intervention Information Intervention Type:Transportation Date of Service:03/29/2018 12:38 PM Patient Type:Emergency Room Staff Member:ABDIAZIZ Kaur [place] Hours:0.5 Discipline:Animal Daycare Provider Severity: Comment: Intervention Type:Post Acute Communication Date of Service:03/29/2018 12:38 PM Patient Type:Emergency Room Staff Member:ABDIAZIZ Kaur [place] Hours:0.25 Discipline:Animal Daycare Provider Severity: Comment:
== END 2018-03-29 12:19 | disposition home or self-care (01) ==
LOC: EDUNIT#
DX: S00.83XA Contusion of other part of head, initial encounter (principal); Z86.73 Personal history of transient ischemic attack (TIA), and cerebral infarction without residual deficits; W18.39XA Other fall on same level, initial encounter; Y92.89 Other specified places as the place of occurrence of the external cause; Y99.8 Other external cause status; Y93.89 Activity, other specified

== ENCOUNTER 2019-03-08 09:25 | Inpatient (IN) | payer OTHER ==
[2019-03-08 10:07] LABS: PLATELET COUNT 237 10^3/uL (150-400)
[2019-03-08 10:15] LABS: INR 1.27 (0.83-1.16); PROTIME(PATIENT) 15.4 SEC (12.0-15.0)
[2019-03-08] MEDS ORDERED: IOPAMIDOL (ISOVUE-300) 100 ML BTL ONE (10:32)
[2019-03-08] MEDS ORDERED: IOPAMIDOL (ISOVUE 370) 100 ML BTL IV ONE (10:33)
--- NOTE | 2019-03-08 10:47 | EDPHY ---
H & P Stated Complaint: Fall than stroke alert Time Seen by Provider: 03/08/19 09:29 HPI/ROS: CHIEF COMPLAINT: Fall HISTORY OF PRESENT ILLNESS: This is an 88-year-old male who arrived by ambulance as a stroke alert. He has a history of a left pontine stroke, seizure disorder that is reportedly well controlled, peripheral neuropathy, hypertension, and hyponatremia. Paramedics state that when they arrived they were told that he had fallen. He is on Plavix. He was noted to have a nose bleed and an abrasion on his forehead. There was concern about right eye/ facial weakness and some speech difficulty. At the time of my initial exam his speech was clear and appropriate. He told me that he was feeling off balance this morning. He states that he always walks with a walker and while walking to breakfast he felt so off balance that he fell to the floor, striking his head. He is unable to provide any further details of this event. REVIEW OF SYSTEMS: A ten system review of systems was performed and is negative with the exception of the items mentioned in the HPI. Past medical history: Mom 1. Left pontine stroke 2. Seizure disorder controlled on gabapentin and carbamazepine 3. Hypertension 4. Peripheral neuropathy 5. Hyponatremia 6. Obstructive sleep apnea 7. BPH 8. History of previous urinary retention Past surgical history: Family history: Social history: He lives in an assisted living facility, [facility], with his .. He has never used tobacco. He does not use alcohol. He is retired. General Appearance: Alert. Vital signs reviewed. Head: There is an abrasion over the right forehead, no palpable skull deformity. No palpable facial bone deformity. Eyes: Hematoma involving the right upper eyelid. Right ptosis. Pupils equal and round, no conjunctival injection, no discharge. Anicteric. ENT, Mouth: Mucous membranes are moist, no oropharyngeal erythema or edema. Clotted blood in the nares. No active bleeding. Neck: No lymphadenopathy, supple. Nontender to palpation over the cervical spine in the midline. Respiratory: Lungs with rales at the bases, worse on the right than on the left. Cardiovascular: Regular rate and rhythm; no murmur, rub, or gallop. Gastrointestinal: Abdomen is soft and nontender, no masses or organomegaly, bowel sounds normal. Skin: Warm and dry, no rashes on exposed skin, normal color. Back: Nontender to palpation over the thoracolumbar spine. No CVAT. Extremities: No lower extremity edema, no calf tenderness or swelling. Neurological: Alert and oriented to person, place, and situation. Moving all four extremities easily and equally. Cranial nerves II through XII are examined and are intact with the exception of what appears to be a right ptosis (visual acuity not tested). It is unclear whether his right ptosis is related to an evolving periorbital ecchymoses are 2 intracranial pathology. Strength is 4+ over 5 left upper extremity with a mild right upper extremity drift and 4+ over 5 bilaterally lower extremities with testing of all major motor groups. Sensation is intact to light touch over all 4 extremities but he does note that is somewhat diminished over his distal lower extremities bilaterally. [id number] is performed with past pointing. Speech is clear. Psychiatric: Normal affect. - Personal History Current Tetanus/Diphtheria Vaccine: Yes Current Tetanus Diphtheria and Acellular Pertussis (TDAP): Yes Tetanus Vaccine Date: < 10 years - Medical/Surgical History Hx Asthma: No Hx Chronic Respiratory Disease: No Hx Diabetes: No Hx Cardiac Disease: Yes Hx Renal Disease: No Hx Cirrhosis: No Hx Alcoholism: No Hx HIV/AIDS: No Hx Splenectomy or Spleen Trauma: No Other PMH: stroke 2013. epilepsy. neuropathy, ALFREDO, HTN,BPH, - Social History Smoking Status: Never smoked Constitutional: Initial Vital Signs Temperature (C) 37.2 C 03/08/19 09:25 Heart Rate 80 03/08/19 09:25 Respiratory Rate 16 03/08/19 09:25 Blood Pressure 132/55 H 03/08/19 09:25 O2 Sat (%) 86 L 03/08/19 09:25 O2 Delivery Mode Room Air O2 (L/minute) 4 Allergies/Adverse Reactions: phenytoin sodium [From Dilantin] Allergy (Verified 03/29/18 09:11) phenytoin sodium extended [From Dilantin] Allergy (Verified 03/29/18 09:11) Home Medications: Medication Instructions Recorded Acetaminophen [Tylenol 325mg (*)] 650 mg PO HS 03/08/19 Acetaminophen [Tylenol 325mg (*)] 650 mg PO Q8HRS PRN 03/08/19 Atorvastatin Calcium [Lipitor 10 10 mg PO HS 03/08/19 mg (*)] Bisacodyl [Dulcolax] 10 mg RC DAILY PRN 03/08/19 Cholecalciferol Vit D3 [Vitamin D3 2,000 units PO DAILY@03/08/19 2000 units tab (OTC)] Clopidogrel Bisulfate [Plavix (*)] 75 mg PO DAILY@03/08/19 Cyanocobalamin [Vitamin B12 (*)] 1,000 mcg PO DAILY@03/08/19 Docusate Sodium [Colace 100 MG (*)] 100 mg PO BID PRN 03/08/19 Finasteride [Proscar 5 MG (*)] 5 mg PO DAILY@03/08/19 Gabapentin [Neurontin 300 MG (*)] 200 mg PO BID@,03/08/19 Gabapentin [Neurontin 300 MG (*)] 900 mg PO HS 03/08/19 Herbals/Supplements -Info Only 1 ea PO DAILY 03/08/19 LORazepam [Ativan (*)] 1.5 mg PO HS 03/08/19 MIRTAZAPINE [Remeron 7.5 mg] 7.5 mg PO HS 03/08/19 Melatonin [Melatonin 3 MG (*)] 3 mg PO HS 03/08/19 Sennosides [Senna Lax] 2 tab PO DAILY@03/08/19 Sennosides [Senna Lax] 3 tab PO HS 03/08/19 Tamsulosin HCl [Flomax 0.4 MG (*)] 0.4 mg PO HS 03/08/19 carBAMazepine [TEGretol (*)] 100 mg PO DAILY16 03/08/19 carBAMazepine [TEGretol (*)] 200 mg PO TID@,,03/08/19 Medical Decision Making - Diagnostics EKG Interpretation: 12 lead EKG is interpreted in [place] by emergency department physician. Imaging Results: Imaging Impressions Head CT 03/08/19 09:31 Impression: 1. No acute intracranial hemorrhage. With high clinical concern for acute ischemia, MRI brain is recommended for further evaluation. Pastora Chino was notified of these findings by telephone at 9:41 AM on 2018 Head CTA 03/08/19 10:24 Impression: 1. Cerebrovascular atherosclerosis. 2. 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 Findings and recommendations discussed with Emergency Department physician, Dr. Pastora Chino at 1115 hours on March 08, 2019. Final report concurs with initial preliminary interpretation. Neck CTA 03/08/19 10:24 Impression: 1. Mild atherosclerotic stenosis proximal left internal carotid artery 25%. 2. Mild calcified plaque right carotid bulb without flow-limiting stenosis. 3. Patent vertebrobasilar system. 4. Moderate to large right pleural effusion. Recommend chest x-ray or consider CT chest. Findings and recommendations discussed with Emergency Department physician, Dr. Pastora Chino at 1115 hours on March 08, 2019. Final report concurs with initial preliminary interpretation. Measurement of carotid stenosis is based on the residual internal carotid diameter with [place] Symptomatic Carotid Endarterectomy Trial (NASCET) based stenosis levels. ED Course/Re-evaluation: Initial presentation was suggestive of possible stroke. He is on Plavix. He was evaluated for stroke in 2016 and had a negative workup at that time. He is known to have had a previous left pontine stroke. He is in a sinus rhythm. Blood pressure is under decent control. Initial head CT is negative for any acute findings. He was evaluated by Dr. Kerr of [facility] via telemedicine. She does not recommend tPA and I agree with this. She advised CT angiogram of the head and neck which was performed and is negative for any findings that would explain today's presentation. I suspect that the right eye droop is actually related to his right facial trauma. He was noted to have a possible pleural effusion on the CTA of his neck. Chest x-ray was obtained and showed evidence of possible CHF versus infiltrate on the right. The patient was noted to be hypoxic at 86% on arrival. This improved with supplemental oxygen. He did have rales on auscultation. The patient had been transferred to the floor when his chest x-ray findings were resulted. They were relayed to the hospitalist service. Hospitalist physician has spoken with the patient's medical power of consumer attorney concerning decisions about care. It is possible that he might have fallen because of a pneumonia/hypoxia. He always uses a walker and has poor balance at baseline. An infection might be enough to worsen his balance, prompting him to fall. Thus far have not found evidence of stroke. He has no history of CHF and BNP is relatively low. I doubt that this is heart failure based upon my history and physical exam. Patient was serially examined while in the emergency department. The admitting physician found him to be somewhat slow in providing answers. Although he was prep mildly slow I found him to be fully oriented and appropriate in his responses. Differential Diagnosis: I considered a differential diagnosis that includes but is not limited to CVA ( either hemorrhagic or ischemic), intracranial mass, seizure, infection, electrolyte disorder, abnormal blood glucose. Critical Care Time: I spent a total of 45 minutes of critical care time in obtaining history, performing a physical exam, bedside monitoring of interventions, collecting and interpreting tests and discussion with consultants but not including time spent performing procedures. He arrived as a stroke alert. He is at risk of neurologic deterioration after falling while on anticoagulants. He was also at risk of respiratory failure. - Data Points Laboratory Results: Laboratory Results 03/08/19 09:50 03/08/19 09:50 03/08/19 03/08/19 03/08/19 09:50 09:50 09:50 WBC 13.54 10^3/uL H 10^3/uL (3.80-9.50) RBC 4.85 10^6/uL 10^6/uL (4.40-6.38) Hgb 14.2 g/dL g/dL (13.7-17.5) POC Hgb Hct 42.8 % % (40.0-51.0) POC Hct MCV 88.2 fL fL (81.5-99.8) MCH 29.3 pg pg (27.9-34.1) MCHC 33.2 g/dL g/dL (32.4-36.7) RDW 14.8 % % (11.5-15.2) Plt Count 237 10^3/uL 10^3/uL (150-400) MPV 8.3 fL L fL (8.7-11.7) Neut % (Auto) 64.5 % % (39.3-74.2) Lymph % (Auto) 26.2 % % (15.0-45.0) [place] % (Auto) 8.6 % % (4.5-13.0) Eos % (Auto) 0.1 % L % (0.6-7.6) Baso % (Auto) 0.2 % L % (0.3-1.7) Nucleat RBC Rel Count 0.0 % % (0.0-0.2) Absolute Neuts (auto) 8.73 10^3/uL H 10^3/uL (1.70-6.50) Absolute Lymphs (auto) 3.55 10^3/uL H 10^3/uL (1.00-3.00) Absolute Monos (auto) 1.17 10^3/uL H 10^3/uL (0.30-0.80) Absolute Eos (auto) 0.01 10^3/uL L 10^3/uL (0.03-0.40) Absolute Basos (auto) 0.03 10^3/uL 10^3/uL (0.02-0.10) Absolute Nucleated RBC 0.00 10^3/uL 10^3/uL (0-0.01) Immature Gran % 0.4 % % (0.0-1.1) Immature Gran # 0.05 10^3/uL 10^3/uL (0.00-0.10) PT 15.4 SEC H SEC (12.0-15.0) INR 1.27 H (0.83-1.16) APTT 34.3 SEC SEC (23.0-38.0) POC Sodium Sodium 130 mEq/L L mEq/L (135-145) POC Potassium Potassium 4.0 mEq/L mEq/L (3.5-5.2) POC Chloride Chloride 96 mEq/L L mEq/L (97-110) Carbon Dioxide 22 mEq/l mEq/l (22-31) POC Total CO2 Anion Gap 12 mEq/L mEq/L (6-14) POC BUN BUN 18 mg/dL mg/dL (7-23) Creatinine 0.9 mg/dL mg/dL (0.7-1.3) POC Creatinine Estimated GFR > 60 Glucose 163 mg/dL H mg/dL (70-100) POC Glucose Calcium 8.3 mg/dL L mg/dL (8.5-10.4) POC Troponin I 03/08/19 03/08/19 09:35 09:34 WBC RBC Hgb POC Hgb 15.6 gm/dL gm/dL (13.7-17.5) Hct POC Hct 46 % % (40-51) MCV MCH MCHC RDW Plt Count MPV Neut % (Auto) Lymph % (Auto) [place] % (Auto) Eos % (Auto) Baso % (Auto) Nucleat RBC Rel Count Absolute Neuts (auto) Absolute Lymphs (auto) Absolute Monos (auto) Absolute Eos (auto) Absolute Basos (auto) Absolute Nucleated RBC Immature Gran % Immature Gran # PT INR APTT POC Sodium 132 mEq/L L mEq/L (135-145) Sodium POC Potassium 4.1 mEq/L mEq/L (3.3-5.0) Potassium POC Chloride 95 mEq/L L mEq/L (97-110) Chloride Carbon Dioxide POC Total CO2 25 mEq/L mEq/L (22-31) Anion Gap POC BUN 17 mg/dL mg/dL (7-23) BUN Creatinine POC Creatinine 0.9 mg/dL mg/dL (0.7-1.3) Estimated GFR Glucose POC Glucose 156 mg/dL H mg/dL (70-100) Calcium POC Troponin I 0.01 ng/mL ng/mL (0.00-0.08) Medications Given: Discontinued Medications Azithromycin 500 mg/ Sodium (Chloride) 255 mls @ 255 mls/hr IV ONCE ONE PRN Reason: Protocol Stop: 03/08/19 16:32 Last Admin: 03/08/19 16:13 Dose: 255 mls Point of Care Test Results: Chemistry 03/08/19 03/08/19 09:35 09:34 POC Sodium 132 mEq/L L mEq/L (135-145) POC Potassium 4.1 mEq/L mEq/L (3.3-5.0) POC Chloride 95 mEq/L L mEq/L (97-110) POC Total CO2 25 mEq/L mEq/L (22-31) POC BUN 17 mg/dL mg/dL (7-23) POC Creatinine 0.9 mg/dL mg/dL (0.7-1.3) POC Glucose 156 mg/dL H mg/dL (70-100) POC Troponin I 0.01 ng/mL ng/mL (0.00-0.08) ISTAT H&H 03/08/19 09:34 POC Hgb 15.6 gm/dL gm/dL (13.7-17.5) POC Hct 46 % % (40-51) Departure - Departure Disposition: [facility] Inpatient Acute Clinical Impression: Pneumonia Qualifiers: Pneumonia type: due to unspecified organism Laterality: right Lung location: lower lobe of lung Qualified Code(s): J18.1 - Lobar pneumonia, unspecified organism Condition: Fair
[2019-03-08] MEDS ORDERED: ACETAMINOPHEN 325 MG TAB PO PRN (11:55)
[2019-03-08] MEDS ORDERED: ONDANSETRON DISINTEGRATING 4 MG TAB PO PRN (11:55)
[2019-03-08] MEDS ORDERED: ONDANSETRON 4 MG/2 ML VIAL IVP PRN (11:55)
[2019-03-08] MEDS ORDERED: HYDROCODONE/APAP 5/325 TAB PO PRN (11:55)
[2019-03-08] MEDS ORDERED: NS 1,000 ML IV SCH (12:00)
--- NOTE | 2019-03-08 15:10 | PDGENHP ---
History and Physical - Chief Complaint Syncope - History of Present Illness Patient is an 88-year-old male with past medical history of CVA, epilepsy since ,who was admitted after suffering a fall and striking his head. Patient says that he does not know exactly what happened but he thinks he was walking and turned around and then fell and passed out. He does not remember the last thing that he was doing but said that he did not feel acute suffered a seizure. He does not remember if he lost consciousness or not. In the ER he was unable to provide me with many details post complaining of persistent right- sided rib pain. In the ER stroke alert was called because he had right eye ptosis actually seemed like it was more due to him having a swollen black eye and due to an underlying ischemic event. Patient was unable to tell me if he previously had had a cough shortness of breath fevers or chills. Aside from Alphonso complaining of severe right-sided rib pain the patient was able to provide me with few details. History Information - Allergies/Home Medication List Allergies/Adverse Reactions: phenytoin sodium [From Dilantin] Allergy (Verified 03/29/18 09:11) phenytoin sodium extended [From Dilantin] Allergy (Verified 03/29/18 09:11) Home Medications: Acetaminophen [Tylenol 325mg (*)] 650 mg PO HS 03/08/19 [Last Taken 03/07/19] Acetaminophen [Tylenol 325mg (*)] 650 mg PO Q8HRS PRN 03/08/19 [Last Taken Unknown] Atorvastatin Calcium [Lipitor 10 mg (*)] 10 mg PO HS 03/08/19 [Last Taken ] Bisacodyl [Dulcolax] 10 mg RC DAILY PRN 03/08/19 [Last Taken 02/28/19] Cholecalciferol Vit D3 [Vitamin D3 2000 units tab (OTC)] 2,000 units PO DAILY@ 03/08/19 [Last Taken 03/08/19] Clopidogrel Bisulfate [Plavix (*)] 75 mg PO DAILY@03/08/19 [Last Taken ] Cyanocobalamin [Vitamin B12 (*)] 1,000 mcg PO DAILY@03/08/19 [Last Taken ] Docusate Sodium [Colace 100 MG (*)] 100 mg PO BID PRN 03/08/19 [Last Taken Unknown] Finasteride [Proscar 5 MG (*)] 5 mg PO DAILY@07 03/08/19 [Last Taken 03/08/19] Gabapentin [Neurontin 300 MG (*)] 200 mg PO BID@07,13 03/08/19 [Last Taken 03/08 07:00] Gabapentin [Neurontin 300 MG (*)] 900 mg PO HS 03/08/19 [Last Taken 03/07/19] Herbals/Supplements -Info Only 1 ea PO DAILY 03/08/19 [Last Taken Unknown] LORazepam [Ativan (*)] 1.5 mg PO HS 03/08/19 [Last Taken 03/07/19] MIRTAZAPINE [Remeron 7.5 mg] 7.5 mg PO HS 03/08/19 [Last Taken 03/07/19] Melatonin [Melatonin 3 MG (*)] 3 mg PO HS 03/08/19 [Last Taken 03/07/19] Sennosides [Senna Lax] 2 tab PO DAILY@03/08/19 [Last Taken 03/08/19] Sennosides [Senna Lax] 3 tab PO HS 03/08/19 [Last Taken 03/07/19] Tamsulosin HCl [Flomax 0.4 MG (*)] 0.4 mg PO HS 03/08/19 [Last Taken 03/07/19] carBAMazepine [TEGretol (*)] 100 mg PO DAILY16 03/08/19 [Last Taken 03/07/19] carBAMazepine [TEGretol (*)] 200 mg PO TID@,,03/08/19 [Last Taken 07:00] I have personally reviewed and updated: family history, medical history, social history, surgical history - Past Medical History Additional medical history: History of epilepsy, CVA, hypertension, BPH - Surgical History Reports: no pertinent surgical hx - Family History Positive for: non-pertinent - Social History Smoking Status: Never smoked Alcohol Use: None Drug Use: None Review of Systems Review of Systems: ROS: 10pt was reviewed & negative except for what was stated in HPI & below Physical Exam Physical Exam: Temp Pulse Resp BP Pulse Ox 36.7 C 71 24 H 110/54 L 94 03/08/19 13:16 03/08/19 13:16 03/08/19 13:16 03/08/19 13:16 03/08/19 13:16 O2 (L/minute) 4 Constitutional: uncomfortable Eyes: other (Ecchymosis and swelling with an abrasion above his right eye dried blood on his right nostril, and swelling and ecchymosis to his right eye) Ears, Nose, Mouth, Throat: moist mucous membranes, hearing normal Cardiovascular: regular rate and rhythym, no murmur, rub, or gallop Respiratory: reduced air movement, inspiratory crackles Gastrointestinal: soft, non-tender abdomen, no palpable masses Genitourinary: no bladder fullness, no bladder tenderness Skin: abrasion, erythema, other (Hematoma above his right eye with ecchymosis to his eye on the right) Musculoskeletal: generalized weakness Neurologic: CN II-XII Intact, other (Oriented to name, able to tell me he was in [facility] thought it was .) Psychiatric: anxious Lymph, Heme, Immunologic: no cervical LAD Lab Data & Imaging Review 03/08/19 09:50 03/08/19 09:50 WBC 13.54 10^3/uL (3.80-9.50) H 03/08/19 09:50 RBC 4.85 10^6/uL (4.40-6.38) 03/08/19 09:50 Hgb 14.2 g/dL (13.7-17.5) 03/08/19 09:50 POC Hgb 15.6 gm/dL (13.7-17.5) 03/08/19 09:34 Hct 42.8 % (40.0-51.0) 03/08/19 09:50 POC Hct 46 % (40-51) 03/08/19 09:34 MCV 88.2 fL (81.5-99.8) 03/08/19 09:50 MCH 29.3 pg (27.9-34.1) 03/08/19 09:50 MCHC 33.2 g/dL (32.4-36.7) 03/08/19 09:50 RDW 14.8 % (11.5-15.2) 03/08/19 09:50 Plt Count 237 10^3/uL (150-400) 03/08/19 09:50 MPV 8.3 fL (8.7-11.7) L 03/08/19 09:50 Neut % (Auto) 64.5 % (39.3-74.2) 03/08/19 09:50 Lymph % (Auto) 26.2 % (15.0-45.0) 03/08/19 09:50 Power % (Auto) 8.6 % (4.5-13.0) 03/08/19 09:50 Eos % (Auto) 0.1 % (0.6-7.6) L 03/08/19 09:50 Baso % (Auto) 0.2 % (0.3-1.7) L 03/08/19 09:50 Nucleat RBC Rel Count 0.0 % (0.0-0.2) 03/08/19 09:50 Absolute Neuts (auto) 8.73 10^3/uL (1.70-6.50) H 03/08/19 09:50 Absolute Lymphs (auto) 3.55 10^3/uL (1.00-3.00) H 03/08/19 09:50 Absolute Monos (auto) 1.17 10^3/uL (0.30-0.80) H 03/08/19 09:50 Absolute Eos (auto) 0.01 10^3/uL (0.03-0.40) L 03/08/19 09:50 Absolute Basos (auto) 0.03 10^3/uL (0.02-0.10) 03/08/19 09:50 Absolute Nucleated RBC 0.00 10^3/uL (0-0.01) 03/08/19 09:50 Immature Gran % 0.4 % (0.0-1.1) 03/08/19 09:50 Immature Gran # 0.05 10^3/uL (0.00-0.10) 03/08/19 09:50 PT 15.4 SEC (12.0-15.0) H 03/08/19 09:50 INR 1.27 (0.83-1.16) H 03/08/19 09:50 APTT 34.3 SEC (23.0-38.0) 03/08/19 09:50 VBG Lactic Acid 3.6 mmol/L (0.7-2.1) H 03/08/19 14:50 POC Sodium 132 mEq/L (135-145) L 03/08/19 09:34 Sodium 130 mEq/L (135-145) L 03/08/19 09:50 POC Potassium 4.1 mEq/L (3.3-5.0) 03/08/19 09:34 Potassium 4.0 mEq/L (3.5-5.2) 03/08/19 09:50 POC Chloride 95 mEq/L (97-110) L 03/08/19 09:34 Chloride 96 mEq/L (97-110) L 03/08/19 09:50 Carbon Dioxide 22 mEq/l (22-31) 03/08/19 09:50 POC Total CO2 25 mEq/L (22-31) 03/08/19 09:34 Anion Gap 12 mEq/L (6-14) 03/08/19 09:50 POC BUN 17 mg/dL (7-23) 03/08/19 09:34 BUN 18 mg/dL (7-23) 03/08/19 09:50 Creatinine 0.9 mg/dL (0.7-1.3) 03/08/19 09:50 POC Creatinine 0.9 mg/dL (0.7-1.3) 03/08/19 09:34 Estimated GFR > 60 03/08/19 09:50 Glucose 163 mg/dL (70-100) H 03/08/19 09:50 POC Glucose 156 mg/dL (70-100) H 03/08/19 09:34 Calcium 8.3 mg/dL (8.5-10.4) L 03/08/19 09:50 Lactate Dehydrogenase 634 IU/L (313-618) H 03/08/19 14:07 POC Troponin I 0.01 ng/mL (0.00-0.08) 03/08/19 09:35 NT-Pro-B Natriuret Pep 826 pg/mL (0-450) H 03/08/19 14:07 Assessment & Plan Assessment: 88-year-old male with past medical history of epilepsy, CVA, hypertension who presented after a fall and trauma to his head with acute hypoxemic respiratory failure and confusion syncope vs fall- patient unable to elaborate exactly what happened but at some point fell or passed out landing on his right face. He has had previous admissions for the same thing. CT head with no acute bleed. CTA head and neck negative although he does have 30% stenosis of his ICA. EKG with only PVCs. No history of CHF arrhythmia or CAD. -monitor on telemetry -repeat echo Altered mental status- patient is unable to give me many details as to exactly what happened. Etiology could be related to infection verses seizure versus metabolic encephalopathy versus other. Imaging negative. -Tegretol level -correct electrolyte imbalance -start antibiotics for possible pneumonia -rule out urinary tract infection Acute hypoxemic respiratory failure- chest x-ray with possible infiltrate versus pulmonary edema and cardiomegaly. BNP only mildly elevated at 800. No history of congestive heart failure. Does have a leukocytosis with left shift. Does not normally use oxygen as requiring 4 L to maintain saturations. Has audible rales on exam. -start antibiotics for community-acquired pneumonia -trial dose of Lasix 20 IV Hyponatremia- patient looks euvolemic. Was given fluids in the emergency room. Check urine electrolytes and repeat serum sodium after given intravenous saline. Epilepsy- history of epilepsy since . On Tegretol and gabapentin and Ativan at night. Patient was able to tell me on arrival that he did not feel postictal after falling. -check Tegretol level -continue gabapentin, Tegretol and Ativan BPH- hold medications in setting of acute illness History of CVA- on Plavix, continue Hyperglycemia- blood glucoses in the 160s with no history of diabetes. A1c pending Prophylaxis- SCDs, Plavix Fluids- hold for now Electrolytes- hyponatremia Nutrition- NPO Cor- DNR Dispo- inpatient, patient critically ill and will require at least 2 midnights.
[2019-03-08] MEDS ORDERED: AZITHROMYCIN IV 500 MG in NS 250 ML IV ONE (15:33)
--- NOTE | 2019-03-08 15:57 | CPEKG ---
Test Reason : OPEN Blood Pressure : / mmHG Vent. Rate : 065 BPM Atrial Rate : 066 BPM P-R Int : 208 ms QRS Dur : 111 ms QT Int : 420 ms P-R-T Axes : 043 -65 049 degrees QTc Int : 437 ms Sinus rhythm Multiple ventricular premature complexes Left anterior fascicular block Probable left ventricular hypertrophy Confirmed by Pastora Chino [id number] on 03/08/2019 3:57:02 PM Referred By: Pastora Chino Confirmed By:Pastora Chino
[2019-03-08] MEDS ORDERED: CARBAMAZEPINE 100 MG CHEWABLE TAB PO SCH (16:00)
[2019-03-08] MEDS ORDERED: SCOPOLAMINE HYDROBROMIDE 1 MG/3 DAYS PATCH TD ONE (20:32)
[2019-03-08] MEDS: CARBAMAZEPINE 100 MG CHEWABLE TAB PO SCH (20:42)
[2019-03-08] MEDS ORDERED: GABAPENTIN 300 MG CAP PO SCH (21:00)
[2019-03-08] MEDS ORDERED: LORazepam 2 MG/ML INJ IVP SCH (21:00)
[2019-03-09] MEDS ORDERED: GABAPENTIN 300 MG CAP PO SCH (07:00)
[2019-03-09 07:53] VITALS: BP 125/61
[2019-03-09] MEDS: CARBAMAZEPINE 100 MG CHEWABLE TAB PO SCH (09:55)
[2019-03-09] MEDS ORDERED: LORazepam 2 MG/ML INJ IVP PRN (10:09)
--- NOTE | 2019-03-09 13:02 | HOSPPROG ---
Hospitalist Progress Note Assessment/Plan: I was called to assess patient as he had become unresponsive and had no spontaneous breath sounds. on examination patient is unresponsive to any stimuli , had no spontaneous breath sounds, and no heart sounds on auscultation. His pupils were not reactive to light. Telemetry monitoring revealed no electrical activity. Patient was declared on march 09 at 1250 AM. Objective: Vital Signs Temp Pulse Resp BP Pulse Ox 37.2 C 90 24 H 125/61 H 69 L 03/08/19 15:58 03/09/19 07:52 03/09/19 07:52 03/09/19 07:52 03/09/19 07:52 PT 15.4 SEC (12.0-15.0) H 03/08/19 09:50 INR 1.27 (0.83-1.16) H 03/08/19 09:50 - Physical Exam Constitutional: other ICD10 Worksheet Patient Problems: Problems Problem Status Onset Pneumonia Acute Acute ischemic stroke Acute Altered mental status Acute CVA (cerebral infarction) Acute Epilepsy with intractable epilepsy Acute Failure to thrive Acute Near syncope Acute Neuropathy Acute Sepsis Acute Urinary tract infection Acute
--- NOTE | 2019-03-09 15:25 | ASMTLACE ---
LACE Length of stay for Answers: 2 days current admission Acuity / Level of Answers: No Care: Did the patient have an inpatient admission? Comorbidities - select Answers: Cerebrovascular disease all that apply (CVA, TIA, aneurysms, vasc ular dementia) Palliative care / End of life trajectory Other Notes: HTN # of Emergency department Answers: 1-2 visits in the last 6 months Score: 7 Date Signed: 03/09/2019 03:24 PM Electronically Signed By:ESSENCE Ulrich
--- NOTE | 2019-03-09 16:06 | PDDCSUM ---
Discharge Summary Discharge Summary: Discharge diagnosis Altered mental status Acute hypoxemic respiratory failure Epilepsy Hypertension Lactic acidosis Hyponatremia Possible syncope The patient is an 88-year-old male who was brought in from [facility] after suffering a fall. In the ER he had a large hematoma over his right eye along with ecchymosis and due to the swelling the emergency room physician thought that he had possible eye ptosis and called a stroke alert. However patient was alert and oriented with no focal neurologic deficits. CTA along with CT of his head and neck were all unremarkable. He was requiring oxygen 4 L she did not do at his baseline. A chest x-ray showed right infiltrate along with cardiomegaly and findings consistent with congestive heart failure. He had an elevated white count and there was concern for bacterial pneumonia. Over the course of the day the patient decompensated requiring more and more oxygen and becoming more altered. He was initially transferred to the intensive care unit for increased level of care. However his MD MAURI was contacted and is most form was found which stated that the patient would only want comfort measures. The decision made was made to initiate comfort care and not pursue aggressive interventions. On March 09 at 1151 a.m. the patient was pronounced . His family was contacted and arrangements were made.
[2019-03-09] MEDS ORDERED: PATCH REMOVAL 1 EA PATCH TD SCH (21:00)
== END 2019-03-09 14:36 | disposition expired | DRG 604 ==
LOC: EDUNIT# → EDBD → F3N 12:33 → F2N 15:45 → OBSVTOIN 03-09 11:33
PROVIDERS: ADMIT Internal Medicine; ATTEND Internal Medicine
DX: S00.83XA Contusion of other part of head, initial encounter (principal); J96.01 Acute respiratory failure with hypoxia; J15.9 Unspecified bacterial pneumonia; E87.2 Acidosis; E87.1 Hypo-osmolality and hyponatremia; Z51.5 Encounter for palliative care; Z66 Do not resuscitate; W19.XXXA Unspecified fall, initial encounter; Y92.129 Unspecified place in nursing home as the place of occurrence of the external cause; R41.82 Altered mental status, unspecified; R55 Syncope and collapse; G40.909 Epilepsy, unspecified, not intractable, without status epilepticus; I11.0 Hypertensive heart disease with heart failure; I50.9 Heart failure, unspecified; N40.0 Benign prostatic hyperplasia without lower urinary tract symptoms; G47.33 Obstructive sleep apnea (adult) (pediatric); Z86.73 Personal history of transient ischemic attack (TIA), and cerebral infarction without residual deficits
CPT/HCPCS: 82435-PO; 82565-PO; 82947-PO; 84132-PO; 84295-PO; 84484-ER; 84520-PO; 85014-ER; 92610-GN; G0378; J0456; J0696; J2060; J2270; Q9967